=== PATIENT | male | born 1945 | race Caucasian/White ===

== ENCOUNTER → 2020-08-01 01:58 | Outpatient (CLI) | payer MEDICARE, OTHER, SELFPAY ==
[2020-08-02 08:28] LABS: SARS-CoV-2 RNA PCR Negative
== END ==
PROVIDERS: PCP Internal Medicine; Visit Provider Internal Medicine Gastroenterology
DX: Z20.822 Contact with and (suspected) exposure to COVID-19 (principal)
CPT/HCPCS: C9803; U0003; U0005

== ENCOUNTER 2020-08-04 00:57 | Day surgery (SDC) | payer MEDICARE, OTHER, SELFPAY ==
[2020-08-04 08:22] VITALS: BP 135/67; PULSE 73; RESP 16; TEMP 36.5; O2SAT 100; BMI 29.9
[2020-08-04] MEDS: LACTATED RINGERS 1,000 ML 150 ML IV CONT (08:32)
[2020-08-04 08:40] LABS: Glucose Point of Care 95 (65-105)
--- NOTE | 2020-08-04 09:07 | WPDANESEPPF ---
Anes - Initial Pre Proc Eval Procedure: Operation Date: 08/04/20 09:30 Proposed Procedures p Screening Colonoscopy - Velasquez Sumner MD Date/Time: 08/04/20 09:07 Surgeon: Velasquez Sumner MD Pre Op Diagnosis: Hx Colon CA Patient Data Age: 75 Gender: M Height: 5 ft 10 in Weight: 94.5 kg Last Vital Signs Temp 97.7 F 08/04/20 08:22 Pulse 73 08/04/20 08:22 Resp 16 08/04/20 08:22 BP 135/67 08/04/20 08:22 Pulse Ox 100 08/04/20 08:22 Allergies Allergy/AdvReac Type Severity Reaction Status Date / Time No Known Allergies Allergy Verified 08/04/20 08:20 Home Medications Medication Instructions Recorded Confirmed Type melatonin 5 mg capsule 10 mg PO QPM cap 04/18/19 08/04/20 History semaglutide 0.5 mg SUB-Q WEEKLY ml 04/18/19 08/04/20 History fluoxetine 20 mg capsule 20 mg PO DAILY #90 cap 10/30/19 08/04/20 Rx lisinopril 20 mg tablet 20 mg PO DAILY #90 tablet 10/30/19 08/04/20 Rx metformin 500 mg tablet 500 mg PO DAILY #90 tablet 10/30/19 08/04/20 Rx omeprazole 40 mg capsule,delayed 40 mg PO DAILY #90 cap 10/30/19 08/04/20 Rx release rosuvastatin 20 mg tablet 20 mg PO DAILY #90 tablet 10/30/19 08/04/20 Rx tamsulosin 0.4 mg capsule 0.4 mg PO DAILY #90 cap 05/12/20 08/04/20 Rx insulin glargine 100 unit/mL (3 20 unit SUB-Q DAILY #15 ml 05/15/20 08/04/20 Rx mL) subcutaneous pen pen needle, diabetic 31 gauge x #100 ea 05/15/20 08/04/20 Rx 5/16 finasteride 5 mg tablet 5 mg PO DAILY #90 tablet 06/26/20 08/04/20 Rx Laboratory Tests 08/04/20 08:35 POC Capillary Glucose 95 mg/dl mg/dl (65-105) Patient hx anesthesia problems: none Family hx anesthesia problems: none PMFSH Past Medical History Medical History (Updated 03/31/20 @ 12:07 by LUCIA De Leon) CKD (chronic kidney disease) Colon cancer Colorectal cancer Surgery and Radiation 2004 Depression Enlarged prostate GERD (gastroesophageal reflux disease) Heartburn Hyperlipidemia Hypertension Kidney mass Osteoarthritis Osteoporosis Renal carcinoma Renal cyst Tremors of nervous system Type 2 diabetes mellitus with other diabetic kidney complication Surgical History Surgical History (Updated 04/18/19 @ 07:01 by Josephine Shaw [facility]) H/O hernia repair Family History Family History (Updated 12/05/17 @ 08:11 by DOCTOR UNKNOWN) Mother Diabetes mellitus Hypertension Father Family history unknown Other Family history of arthritis Family history of malignant neoplasm Social History Social History (Updated 04/18/19 @ 08:38 by Josephine Shaw [facility]) Smoking status: Former smoker Smoking end date: 05/30/88 Alcohol intake: current Drinks per week: 1 Alcohol use details: OCCATIONALLY Substance use: never Living arrangements: with family Gender identity (if verbalized by the patient): Male Spiritual care concerns: No Anes - Eval Final PreProcedure Day of Procedure 08/04/20 09:07 Patient weight: overweight Heart: regular rate and rhythm Lungs: clear to auscultation Airway: Mallampati scale class III Neurological: alert and oriented Last oral intake: >/= 8 hours ASA classification: III Emergent: no Anesthetic plan: proceed Anesthesia type and monitoring: general GIVS and standard monitoring Informed Consent: The patient's anesthetic plan and its attendant risks and benefits were discussed with the patient/family/POA. Questions were solicited and answers provided to the satisfaction of the patient/family/POA.
[2020-08-04 09:43] VITALS: BP 93/43; PULSE 66; RESP 13; O2SAT 97
[2020-08-04 09:53] VITALS: BP 107/47; PULSE 64; RESP 17; O2SAT 97
[2020-08-04 10:00] LABS: Glucose Point of Care 82 (65-105)
== END 2020-08-04 10:20 | disposition home or self-care (01) ==
PROVIDERS: PCP Internal Medicine; Visit Provider Internal Medicine Gastroenterology
PROC: 0DJD8ZZ Inspection of Lower Intestinal Tract, Via Natural or Artificial Opening Endoscopic (ICD-10-PCS; CPT 45378; principal; 2020-08-04 09:30)
DX: Z12.11 Encounter for screening for malignant neoplasm of colon (principal); Z98.0 Intestinal bypass and anastomosis status; I12.9 Hypertensive chronic kidney disease with stage 1 through stage 4 chronic kidney disease, or unspecified chronic kidney disease; N18.9 Chronic kidney disease, unspecified; F32.9 Major depressive disorder, single episode, unspecified; Z85.038 Personal history of other malignant neoplasm of large intestine; N40.0 Benign prostatic hyperplasia without lower urinary tract symptoms; M81.0 Age-related osteoporosis without current pathological fracture; M19.90 Unspecified osteoarthritis, unspecified site; N28.1 Cyst of kidney, acquired; Z85.528 Personal history of other malignant neoplasm of kidney; R25.1 Tremor, unspecified; E11.22 Type 2 diabetes mellitus with diabetic chronic kidney disease; E78.5 Hyperlipidemia, unspecified; Z79.84 Long term (current) use of oral hypoglycemic drugs; Z79.4 Long term (current) use of insulin; Z90.49 Acquired absence of other specified parts of digestive tract; Z87.891 Personal history of nicotine dependence
CPT/HCPCS: G0105; 82948; J2704; J7120

== ENCOUNTER 2020-10-16 13:32 | Outpatient (CLI) | payer MEDICARE, OTHER, SELFPAY ==
--- NOTE | ~2020-10-16 | MR_ITS ---
EXAMINATION: MR brain/brain stem wo/w con DATE: 10/16/2020 14:35 INDICATION: Tremor, unspecified. TECHNIQUE: Magnetic resonance imaging (MRI) of the brain and brainstem was performed without and with 19 mL MultiHance intravenous contrast. Sequences included sagittal and axial T1-weighted FSE, axial diffusion-weighted FS EPI, axial T2*-weighted GRE, axial T2-weighted FLAIR Propeller, and axial T2-we ighted Propeller. Postcontrast sequences included axial and coronal T1-weighted FSE. Apparent diffusi on coefficient (ADC) maps were created. COMPARISON: None. FINDINGS: There are scattered areas of nonspecific increased T2-weighted signal intensity in the cere bral white matter, which is within normal limits for the patient's age. There is no intracranial hemo rrhage, acute infarction, or abnormal intracranial mass lesion. The ventricles are normal in size. Th e paranasal sinuses are clear. The orbits are normal. The mastoid air cells are normal. IMPRESSION: 1. Normal aging brain. Reviewed, dictated and finalized at location A. IMPRESSION: 1. Normal aging brain.
== END 2020-10-16 13:33 | disposition home or self-care (01) ==
PROVIDERS: PCP Internal Medicine; Visit Provider Clinical Nurse Specialist
DX: R25.1 Tremor, unspecified (principal); R26.81 Unsteadiness on feet
CPT/HCPCS: 70553; A9577

== ENCOUNTER 2021-03-05 12:30 | Outpatient (RCR) | payer MEDICARE, OTHER, SELFPAY ==
--- NOTE | 2021-01-27 14:38 | PTOPEVAL ---
PHYSICAL THERAPY EVALUATION AND PLAN OF CARE Thank you for referring Bertin Jeff to [facility].? The patient is scheduled to be seen for therapy? 1x/week for 5 weeks. Please review, sign, date and return this plan of care JACIEL. I agree with and certify that the following plan of care is medically necessary. Referring Physician Date Attending Provider: Gladis Zheng, SUPERVISOR INCISING-C Evaluation Cardiovascular History Hx Hypercholesterolemia Yes Hx Hypertension Yes Gastrointestinal History Hx Appendectomy Yes Hx Bowel Surgery Yes: 2004 COLECTOMY WITH J POUCH Hx Cholecystectomy Yes Hx Colorectal Cancer Yes: 2004 Hx Gastroesophageal Reflux Disease Yes Hx Hemorrhoids Yes Hx Hernia Yes Hx Polyps Yes Genitourinary History Hx Benign Prostatic Hyperplasia Yes Endocrine History Hx Diabetes Yes: TYPE 2 HEENT History Hx Tonsillectomy Yes Other History Hx Cancer Yes: COLON CA 2004 Hx Implanted Device Yes: ABDOMINAL ILANA Diagnosis Unsteadiness on feet Subjective Information Hiren is here today talking Query Text:As Reported By Patient/ about some difficulty with Family balance. A few years ago he states that he was falling and losing his balance alot but states that this has not happened in several years. He started walking 1.5miles 3-4x/ wk with his week and he feels like this has helped his balance and function. More recently he reports difficulty on stairs, especially not being able to tell where the bottom step is. Pain Score Pain Score 0: Self Report Lower Extremity Muscle Strength Testing Hip Strength Bilateral Hip Flexion Strength 4 Good Hip Extension Strength 3- Fair - Hip Abduction Strength 3+ Fair + Muscle Length Testing Muscle Length Testing Demetrio Test Shortened Muscles Short (R) Iliopsoas,Short (L) Iliopsoas Left Hamstring Length -45 Query Text:(90 - 90 Position) Right Hamstring Length -45 Query Text:(90 - 90 Position) Right Prone Knee Flexor Muscle Length ( 90 degrees) Left Prone Knee Flexor Muscle Length ( 90 degrees) Balance Assessment [place] Balance Assessment Sitting to Standing Independent w/Hands U
--- NOTE | 2021-03-05 12:55 | PTOPEVAL ---
PHYSICAL THERAPY DISCHARGE NOTE Thank you for referring Bertin Jeff to [facility].? Please review, sign, date and return this plan of care JACIEL. I agree with and certify that the following plan of care is medically necessary. Referring Physician Date Attending Provider: Gladis Zheng, BODY AND FRAME MAN-C Discharge Diagnosis Unsteadiness on feet Subjective Information Hiren has participated in 5 Query Text:As Reported By Patient/ weeks of physical therapy. He Family reports that he is feeling stronger and more confindent in every way. He states he has been faithful withi his exercises at home and will continue to do them. Pain Score Pain Score 0: Self Report Lower Extremity Muscle Strength Testing Hip Strength Bilateral Hip Flexion Strength 5 Normal Hip Extension Strength 4- Good - Hip Abduction Strength 5 Normal Knee Strength Bilateral Knee Flexion Strength 5 Normal Knee Extension Strength 5 Normal Muscle Length Testing Muscle Length Testing Demetrio Test Shortened Muscles Short (R) Iliopsoas,Short (L) Iliopsoas Left Hamstring Length -35 Query Text:(90 - 90 Position) Right Hamstring Length -35 Query Text:(90 - 90 Position) Right Prone Knee Flexor Muscle Length ( 95 degrees) Left Prone Knee Flexor Muscle Length ( 95 degrees) Balance Assessment [place] Balance Assessment Sitting to Standing Independent w/out Hands Unsupported Stance Ability Safely- 2 minutes Sitting Unsupported, Feet on Floor Safely- 2 minutes Standing to Sitting Safely, Minimal Hand Use Transfer Ability Safely, Minimal Hand Use Unsupported Stance- Eyes Closed Safely, 10 seconds Unsupported Stance- Feet Together Independent, 1 minute Reaching Forward while Standing Confidently, 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 Floor Independent/Safe Look Behind Shoulder - Standing Shifts Weight Well Turning 360 Degrees Turns Bilateral, < 4 secs Unsupported Stance, Alternating Feet on (I)- 8 Steps in 20 secs Stair Unsupported Tandem Stance Achieves Tandem Unilateral Leg Stance Lifts Leg/Holds 10 secs [place] Balance Evaluation Total Score (/56 56 points) Time Up Go (TUG) Timed Up and Go Test (TUG) (Seconds) 9 Assistive Devices None Comments 1month ago = 9seconds 5 Time Sit to Stand Time in Seconds 12.5 5 Time Sit to Stand Comments 1month ago = 16.5seconds Query Text:Normative Data: If Greater Than 15 Seconds, 74% Increase Risk for Recurrent Falls
== END 2021-03-06 08:45 | disposition home or self-care (01) ==
LOC: ANHPT 12:30
PROVIDERS: PCP Internal Medicine; Visit Provider Clinical Nurse Specialist
DX: R26.81 Unsteadiness on feet (principal)
CPT/HCPCS: 97110; 97162

== ENCOUNTER 2021-03-14 11:31 | Emergency (ER) | payer MEDICARE, OTHER, SELFPAY ==
--- NOTE | ~2021-03-14 | XR_ITS ---
[[id number] ] INDICATION: Left rib pain after recent fall TECHNIQUE: Frontal projection of the upper left ribs, frontal projection of the lower left ribs, obli que projection of all the left ribs, frontal inspiratory chest x-ray for interpretation. FINDINGS: There are no displaced rib fractures identified. There are no soft tissue abnormality see n. The lungs are clear. IMPRESSION: 1:No acute displaced rib fractures. Reviewed, dictated and finalized at location A.
[2021-03-14 11:37] VITALS: BP 167/85; PULSE 70; RESP 18; TEMP 36.6; O2SAT 99
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
== END 2021-03-14 13:40 | disposition home or self-care (01) ==
PROVIDERS: Emergency Provider Emergency Medicine; PCP Internal Medicine
DX: S29.9XXA Unspecified injury of thorax, initial encounter (principal); Z87.891 Personal history of nicotine dependence; E11.22 Type 2 diabetes mellitus with diabetic chronic kidney disease; I12.9 Hypertensive chronic kidney disease with stage 1 through stage 4 chronic kidney disease, or unspecified chronic kidney disease; N18.9 Chronic kidney disease, unspecified; Z85.038 Personal history of other malignant neoplasm of large intestine; N40.0 Benign prostatic hyperplasia without lower urinary tract symptoms; K21.9 Gastro-esophageal reflux disease without esophagitis; E78.5 Hyperlipidemia, unspecified; M19.90 Unspecified osteoarthritis, unspecified site; M81.0 Age-related osteoporosis without current pathological fracture; Z85.528 Personal history of other malignant neoplasm of kidney; Z79.899 Other long term (current) drug therapy; Z79.84 Long term (current) use of oral hypoglycemic drugs; V92.09XA Drowning and submersion due to fall off unspecified watercraft, initial encounter
CPT/HCPCS: 71101; 99283

== ENCOUNTER 2021-06-06 05:02 | Emergency (ER) | payer MEDICARE, OTHER, SELFPAY ==
[2021-06-06 06:31] LABS: SARS-CoV-2 RNA PCR Positive
[2021-06-06 06:35] VITALS: BP 144/70; PULSE 96; RESP 18; TEMP 37.8; O2SAT 97
--- NOTE | 2021-06-06 07:40 | ED.GENADULT ---
HPI - General Adult General Chief complaint: Unspecified Stated complaint: wants covid test Time Seen by Provider: 06/06/21 07:01 Source: patient Mode of arrival: ambulatory Limitations: no limitations History of Present Illness HPI narrative: This is a 76 year old male who presents for evaluation of possible COVID. Patient states he developed symptoms 2 days ago. His symptoms include sinus congestion with drainage, sore throat, chills. He has subjective fever. He reports having intermittent cough but denies worsening shortness of breath. He has chronic breathing issues due to history of smoking. He has been vaccinated. He denies nausea, vomiting, abdominal pain or diarrhea. Related Data Home Medications Medication Instructions Recorded Confirmed melatonin 5 mg capsule 10 mg PO QPM cap 04/18/19 04/15/21 semaglutide 0.5 mg SUB-Q WEEKLY ml 04/18/19 04/15/21 Allergies Allergy/AdvReac Type Severity Reaction Status Date / Time No Known Allergies Allergy Verified 03/14/21 11:41 Review of Systems Review of Systems: All systems reviewed & are unremarkable except as noted in HPI and below PMFSH Past Medical History Medical History CKD (chronic kidney disease) Colon cancer Colorectal cancer Surgery and Radiation 2004 Depression Enlarged prostate GERD (gastroesophageal reflux disease) Heartburn Hyperlipidemia Hypertension Kidney mass Osteoarthritis Osteoporosis Renal carcinoma Renal cyst Tremors of nervous system Type 2 diabetes mellitus with other diabetic kidney complication Surgical History Surgical History H/O hernia repair Family History Family History Mother Diabetes mellitus Hypertension Father Family history unknown Other Family history of arthritis Family history of malignant neoplasm Social History Social History Smoking status: Never smoker Smoking end date: 05/30/88 Alcohol intake: current Drinks per week: 1 Alcohol use details: Occasionally Substance use: never Gender identity (if verbalized by the patient): Male Spiritual care concerns: No Exam Const: General: cooperative, no acute distress, well developed and well groomed Nutritional Appearance: average body habitus Orientation/consciousness: patient oriented x3 Limitations: no limitations HENMT: Head: normocephalic and atraumatic Face and sinus: normal facial exam, sinuses nontender and face symmetric Mouth: Yes Normal oral and palatal mucosa present, Yes lip normal, Yes oropharynx normal and Yes moist mucous membranes Throat: posterior oropharynx normal, tonsils normal and uvula midline Chest: Chest palpation & inspection: normal inspection of the chest Resp: Effort & Inspection: normal respiratory effort and able to speak in complete sentences Auscultation: clear to auscultation bilaterally Cardio: Jugular venous distension: no JVD Rate: regular rate Rhythm: regular rhythm GI: Inspection: normal to inspection GI Palp: Yes Soft to palpation and No Tenderness to palpation present (GI) Auscultation: normal bowel sounds Skin: General skin exam: normal color Course Reevaluation(s) Reevaluation #1: Patient lungs are clear with normal oxygenation. I discussed discharge plan . He would like prescription of Paxlovid. I also discussed isolation requirement. Date: 06/06/21 Time: 07:43 Vital Signs Vital signs: Vital Signs Temperature 100.0 F H 06/06/21 06:35 Pulse Rate 96 06/06/21 06:35 Respiratory Rate 18 06/06/21 06:35 Blood Pressure 144/70 H 06/06/21 06:35 Pulse Oximetry 97 06/06/21 06:35 Temperature 100.0 F H 06/06/21 06:35 Pulse Rate 96 06/06/21 06:35 Respiratory Rate 18 06/06/21 06:35 Blood Pressure 144/70 H 06/06/21 06:35 Puls
== END 2021-06-06 08:03 | disposition home or self-care (01) ==
PROVIDERS: Emergency Medicine; Emergency Provider General Practice; PCP Internal Medicine
DX: U07.1 COVID-19 (principal); E11.22 Type 2 diabetes mellitus with diabetic chronic kidney disease; I12.9 Hypertensive chronic kidney disease with stage 1 through stage 4 chronic kidney disease, or unspecified chronic kidney disease; N18.9 Chronic kidney disease, unspecified; N40.0 Benign prostatic hyperplasia without lower urinary tract symptoms; E78.5 Hyperlipidemia, unspecified; R12 Heartburn; M81.0 Age-related osteoporosis without current pathological fracture; M19.90 Unspecified osteoarthritis, unspecified site; Z85.038 Personal history of other malignant neoplasm of large intestine; Z85.528 Personal history of other malignant neoplasm of kidney; Z87.891 Personal history of nicotine dependence; Z79.84 Long term (current) use of oral hypoglycemic drugs; Z79.899 Other long term (current) drug therapy
CPT/HCPCS: 99283; C9803; U0003; U0005

== ENCOUNTER 2021-06-09 07:52 | Outpatient (RCR) | payer MEDICARE, OTHER, SELFPAY ==
[2021-06-09] MEDS: ACETAMINOPHEN 325 MG TABLET 650 MG PO (08:17)
[2021-06-09 08:18] VITALS: BP 122/56; PULSE 86; RESP 20; TEMP 35.9; O2SAT 100
[2021-06-09] MEDS: FAMOTIDINE 20 MG TABLET PO (08:18)
[2021-06-09] MEDS: diphenhydrAMINE HCl CAP 25 MG CAPSULE PO (08:18)
[2021-06-09 09:40] VITALS: BP 110/63; PULSE 77
== END 2021-06-09 16:08 ==
LOC: AMCINF 07:52
PROVIDERS: PCP Nurse Practitioner; Visit Provider Internal Medicine Hematology & Oncology
DX: U07.1 COVID-19 (principal); I12.9 Hypertensive chronic kidney disease with stage 1 through stage 4 chronic kidney disease, or unspecified chronic kidney disease; E11.9 Type 2 diabetes mellitus without complications; N18.9 Chronic kidney disease, unspecified
CPT/HCPCS: A9270; M0247; Q0247

== ENCOUNTER 2022-04-12 10:44 | Outpatient (CLI) | payer MEDICARE, OTHER, SELFPAY ==
[2022-04-12 19:07] LABS: Hemoglobin A1C 6.6 % (<5.7)
[2022-04-12 19:14] LABS: Creatinine Urine 195.2 mg/dL
[2022-04-12 19:18] LABS: Alanine Aminotransferase 48 U/L (6-50); Albumin Level 4.1 g/dL (3.5-5.1); Alkaline Phosphatase 44 U/L (38-126); Anion Gap 10 mmol/L (8-16); Aspartate Amino Transferase 39 U/L (17-59); Bilirubin,Total 0.6 mg/dL (0.2-1.3); Blood Urea Nitrogen 19 mg/dL (9-20); Carbon Dioxide 25 mmol/L (22-30); Chloride 103 mmol/L (98-107); Cholesterol 104 mg/dL (0-200); Estimated Glomerular Filt Rate 53; Glucose 126 mg/dL (65-110); HDL Direct 33 mg/dL; MALB Creatinine Ratio 5.7 mg/g (0-30); Microalbumin Urine Random 11.2 mg/L (0-16.7); Potassium 4.9 mmol/L (3.4-5.0); Sodium 138 mmol/L (137-145); Triglycerides 130 mg/dL (<150)
[2022-04-12 19:29] LABS: LDL Cholesterol Direct 44 mg/dL
[2022-04-12 20:02] LABS: Basophils Percent Auto 0.8 % (0.2-1.2); Eosinophils Absolute Auto 0.3 K/mm3 (0-0.3); Eosinophils Percent Auto 5.4 % (0-4.4); Hematocrit 38.6 % (42.0-52.0); Hemoglobin 13.2 g/dL (14.0-18.0); Immature Granulocyte Absolute 0.01 K/mm3 (0.00-0.031); Immature Granulocyte Percent A 0.2 % (0-0.5); Lymphocytes Absolute Auto 0.94 K/mm3 (0.9-3.2); Lymphocytes Percent Auto 18.7 % (18.3-44.2); Mean Corpuscular HGB Conc 34.2 g/dl (32-36); Mean Corpuscular Hemoglobin 32.8 pg (26-34); Mean Corpuscular Volume 95.8 fl (80-100); Mean Platelet Volume 11.3 fl (7.4-10.4); Monocytes Absolute Auto 0.3 K/mm3 (0.1-0.6); Monocytes Percent Auto 6.8 % (2.6-8.5); Neutrophils Absolute Auto 3.4 K/mm3 (1.3-6.7); Neutrophils Percent Auto 68.1 % (45.5-73.1); Platelet Count Result 152 k/mm3 (150-375); Red Blood Count 4.03 M/mm3 (4.6-6.20); Red Cell Distribution Width 12.8 % (11.5-14.5)
== END 2022-04-12 10:45 | disposition home or self-care (01) ==
LOC: ANHGOSHLAB 10:48
PROVIDERS: PCP Internal Medicine; Visit Provider Clinical Nurse Specialist
DX: E11.29 Type 2 diabetes mellitus with other diabetic kidney complication (principal)
CPT/HCPCS: 36415; 80053; 80061; 82043; 82607; 83036; 85025

== ENCOUNTER 2022-08-29 18:08 | Observation (INO) | payer MEDICARE, OTHER, SELFPAY ==
[2022-08-29] VITALS (18 sets, daily range): BP systolic 110–165; BP diastolic 47–78; PULSE 65–82; RESP 10–20; TEMP 36.5–36.6; O2SAT 97–100; BMI 29.7; BMI 29.4
--- NOTE | ~2022-08-29 | NM_ITS ---
EXAMINATION: NM chai stress w perfusion DATE: 08/30/2022 13:23 INDICATION: Chest pain TECHNIQUE: Rest images were obtained following intravenous administration of 10.5 mCi Tc99m tetrofosm in (Myoview). The patient was infused intravenously with Lexiscan (Regadenoson). Then, 34.5 mCi Tc99m tetrofosmin (Myoview) was administered intravenously, and stress images were obtained. Data was alannah nstructed into short axis and horizontal and vertical long axis SPECT images. Gated SPECT images were also obtained. COMPARISON: None. FINDINGS: There is no definite reversible or fixed perfusion abnormality to suggest ischemia or infar ction. There is normal left ventricular chamber size, wall motion and ejection fraction. Left ventr icular ejection fraction measures 65%. IMPRESSION: 1. Normal myocardial perfusion at rest and during stress. 2. Left ventricular ejection fraction measuring 65%. Reviewed, dictated and finalized at location A.
--- NOTE | ~2022-08-29 | XR_ITS ---
EXAMINATION: XR chest 2V Exam Date/Time: 08/29/2022 19:03 CDT HISTORY: Generalized chest pain that started this morning. Hx htn Comparison: 09/24/2009. RESULT: Lines, tubes, and devices: None. Lungs and pleura: Senescent change. Persistent left hemidiaphragm elevation. Linear scar/atelectasis in the left lower lung. Cardiomediastinal silhouette: Stable. Other: No acute osseous or upper abdominal finding. IMPRESSION: No acute cardiopulmonary process. Reviewed, dictated and finalized at location K.
--- NOTE | 2022-08-29 18:10 | ECG_ITS ---
Measurements Intervals [place] Rate: 77 P: -3 TN: 169 QRS: 77 QRSD: 157 T: 21 QT: 404 QTc: 458 Interpretive Statements SINUS RHYTHM RIGHT BUNDLE BRANCH BLOCK [120+ ms QRS DURATION, UPRIGHT V1, 40+ ms S IN I/aVL/V4/V5/V6] NO PREVIOUS ECG AVAILABLE FOR COMPARISON Electronically Signed On 08-30-2022 12:17:33 CDT by Chantelle Valdivia M.D.
[2022-08-29 18:40] LABS: Basophils Percent Auto 0.6 % (0.2-1.2); Eosinophils Absolute Auto 0.2 K/mm3 (0-0.3); Eosinophils Percent Auto 2.8 % (0-4.4); Hematocrit 38.4 % (42.0-52.0); Hemoglobin 12.9 g/dL (14.0-18.0); Immature Granulocyte Absolute 0.02 K/mm3 (0.00-0.031); Immature Granulocyte Percent A 0.3 % (0-0.5); Lymphocytes Absolute Auto 0.92 K/mm3 (0.9-3.2); Mean Corpuscular HGB Conc 33.6 g/dl (32-36); Mean Corpuscular Hemoglobin 32.7 pg (26-34); Mean Corpuscular Volume 97.2 fl (80-100); Mean Platelet Volume 10.4 fl (7.4-10.4); Monocytes Absolute Auto 0.3 K/mm3 (0.1-0.6); Monocytes Percent Auto 3.5 % (2.6-8.5); Neutrophils Absolute Auto 5.7 K/mm3 (1.3-6.7); Neutrophils Percent Auto 79.8 % (45.5-73.1); Platelet Count Result 169 k/mm3 (150-375); Red Blood Count 3.95 M/mm3 (4.6-6.20); Red Cell Distribution Width 12.7 % (11.5-14.5); White Blood Count 7.1 K/mm3 (4.5-10.0)
[2022-08-29 18:53] LABS: Alanine Aminotransferase 32 U/L (6-50); Albumin Level 4.5 g/dL (3.5-5.1); Alkaline Phosphatase 49 U/L (38-126); Anion Gap 7 mmol/L (8-16); Aspartate Amino Transferase 28 U/L (17-59); Bilirubin,Total 0.6 mg/dL (0.2-1.3); Blood Urea Nitrogen 19 mg/dL (9-20); Calcium 9.1 mg/dL (8.4-10.2); Carbon Dioxide 26 mmol/L (22-30); Chloride 104 mmol/L (98-107); Estimated CRCL calculation 43 ml/min; Estimated Glomerular Filt Rate 53; Glucose 197 mg/dL (65-110); INR 1.1; Lipase 242 U/L (23-300); Potassium 4.4 mmol/L (3.4-5.0); Prothrombin Time 13.3 Seconds (11.1-14.7); Sodium 137 mmol/L (137-145)
[2022-08-29 18:54] LABS: Partial Thromboplastin Time 26.6 SECONDS (22.3-36.8)
[2022-08-29 19:04] LABS: Troponin I < 0.012 ng/mL (0.000-0.034)
--- NOTE | 2022-08-29 20:36 | ED.CHESTPAIN ---
HPI - Chest Pain General Chief Complaint: Chest Pain Stated Complaint: episodes of CP Time Seen by Provider: 08/29/22 20:33 History of Present Illness HPI narrative: Patient is a 77-year-old male with a history of hyperlipidemia, diabetes, hypertension here for evaluation of chest pain today. Patient states that the first episode developed while he was at [employer] this morning. He described it as a tightness in the center of his chest associated with some nausea but no vomiting. The sensation resolved without intervention, but he had several more episodes throughout the day that were similar. Several of these were associated with exertion. The pain was 3 out of 10 at its max, not present currently. He also describes a warm sensation in his legs and both arms. He denies any history of previous similar sensation. He has never had cardiac catheterization, he had a stress test over 10 years ago that was reportedly normal. No shortness of breath, leg swelling, fevers or chills, cough or congestion. Related Data Home Medications Medication Instructions Recorded Confirmed melatonin 5 mg capsule 10 mg PO QPM 04/18/19 08/29/22 insulin glargine 100 unit/mL (3 14 unit subcut QPM 07/12/22 08/29/22 mL) subcutaneous pen (Lantus Solostar U-100 Insulin) semaglutide 0.25 mg or 0.5 mg (2 0.25 mg subcut WEEKLY 07/12/22 08/29/22 mg/1.5 mL) subcutaneous pen injector (Ozempic) Allergies Allergy/AdvReac Type Severity Reaction Status Date / Time No Known Allergies Allergy Verified 07/12/22 08:55 Review of Systems Review of Systems: Gen: Denies fevers or chills Eyes: Denies eye pain or visual change ENT: Denies congestion Respiratory: Denies shortness of breath or cough CV: reports chest pain GI: Denies abdominal pain nausea, emesis or diarrhea : denies burning, urgency, frequency or hematuria Musculoskeletal: Denies back pain or muscle pain Neuro: Denies numbness, tingling, weakness or focal weakness Skin: Denies rash Except as documented, all other systems reviewed and negative [facility] Past Medical History Medical History (Updated 08/29/22 @ 23:58 by Sulma Coronado PA-C) AK (actinic keratosis) BPH (benign prostatic hyperplasia) Cataracts, bilateral Maturing Chronic kidney disease, stage 3b Dr. Mcnamara Colorectal cancer Surgery and Radiation 2004 COVID-19 (~07/2021) Depression Essential hypertension GERD (gastroesophageal reflux disease) Hyperlipidemia Insomnia Kidney stones Osteoarthritis Osteoporosis Renal carcinoma Tremors of nervous system Type 2 diabetes mellitus with other diabetic kidney complication Hemoglobin A1c 6 28 July 2022 Surgical History Surgical History (Updated 08/29/22 @ 21:43 by Katia Dooley DO) H/O hernia repair History of appendectomy History of resection of rectum (2004) History of tonsillectomy Hx of cholecystectomy Normal colonoscopy (07/2020) Family History Family History Mother Diabetes mellitus Hypertension Father Family history unknown Other Family history of arthritis Family history of malignant neoplasm Social History Social History Smoking packs per day: 1 Smoking cigarettes per day: 20.0 Years smoked: 33 Smoking pack-years: 33.00 Smoking status: Former smoker Tobacco type: cigarettes Smoking end date: 05/30/88 Alcohol intake: current Drinks per week: 1 Alcohol use details: Occasionally Substance use: never Lack of Transportation: No Lack of Food: Never True Current Housing: I Have Housing Concerned About Future Housing: No Difficulty Paying Gas/Electric Bills: No Difficulty Paying for Meds: YES Currently Unemployed: No Education: High School Diploma/GED Difficulty w/ Childcare or Family Care: No Living arrangements: with family Gender identity (if verbalized by the patient): Male Spir
[2022-08-29 21:22] LABS: Troponin I < 0.012 ng/mL (0.000-0.034)
--- NOTE | 2022-08-29 21:34 | PM.IMHP ---
H&P: HPI History of Present Illness Date/Time: 08/29/22 21:34 Chief Complaint: Chest Pain Narrative: 68-year-old with a past medical history of type 2 diabetes, hypertension, hyperlipidemia, chronic kidney stage 3, GERD and several other comorbid conditions who presented to the ER with chest pain. The patient reports that he was getting ready for jainism when he developed a sensation of warmth in his chest that radiated all over his body. The hip pain is pressure-like in nature. He denied any nausea vomiting, lightheadedness, palpitations limb heaviness or weakness. This sensation lasted for about 30 seconds in the resolved. 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 When he changes clothes he had a similar episode. Then it also happened again after he came in from working outside around 17:00. After he had the 3rd episode his insisted that he come into the ER for evaluation. He had never had any symptoms like this previously. He does report that he occasionally feels off balance and will stumble. But he does have history of peripheral neuropathy. He has not had any falls. He does have chronic kidney disease and BPH. He reports that he has had progressively weaker stream. He still feels as if he empties his bladder completely. He does not follow with urology. He denies any hematuria or dysuria. He denies any history of stroke or difficulties with his hormones. He has not noticed any localized weakness. Both he and his report occasional difficulty swallowing foods. He states he sometimes feels as if they have not chewed the food enough and he feels as if the food will get stuck. He does follow with Dr. Aragon for history of prior rectal cancer in 2004 and he had his last colonoscopy in July of 2020. He reports that no one instructed him to follow-up for another colonoscopy in his last colonoscopy was actually performed by Dr. Walker since Dr. Aragon was out of the office. He does report difficulty with stool incontinence at times since his resection. He denies any changes in his stool from baseline, hematochezia or melena. His weight has been stable. He denies any near-syncope symptoms. He reports that he used to be quite active physically but has been having some difficulty with sciatica and his lower back radiating down his right side. Subsequently his activity the level has declined over the last 6-8 months. He reports that his last stress test was over 10 years ago and was normal. His has told him that he snores if he lays on his back. He denies daytime sleepiness or fatigue. He has never been tested for sleep apnea. Review of Systems Review of Systems: 12 systems were reviewed with pertinent positives and negatives per HPI. Except as documented in the HPI, all other systems were reviewed and are negative. [facility] Past Medical History Medical History (Updated 08/30/22 @ 03:04 by Katia Dooley DO) AK (actinic keratosis) BPH (benign prostatic hyperplasia) Cataracts, bilateral Maturing Chronic kidney disease, stage 3b Dr. Mcnamara Colorectal cancer Surgery and Radiation 2004 COVID-19 (~07/2021) Depression Diabetic peripheral neuropathy Essential hypertension GERD (gastroesophageal reflux disease) Hyperlipidemia Insomnia Kidney stones Osteoarthritis Osteoporosis Renal carcinoma Tremors of nervous system Type 2 diabetes mellitus with other diabetic kidney complication Hemoglobin A1c 6 28 July 2022 Surgical History Surgical History (Updated 08/29/22 @ 21:43 by Katia Dooley DO) H/O hernia repair History of appendectomy History of resection of rectum (2004) History of tonsillectomy Hx of cholecystectomy Normal colonoscopy (07/2020) Family History Family History Mother Diabetes mellitus Hypertension Father Family history unknown Other Family
--- NOTE | 2022-08-29 22:31 | ADMGEN ---
This patient, Bertin Jeff, was admitted to IMU Room 210-01. Patient/family oriented to hospital policies and general routines including ID bracelet, bed and alarms, visiting hours, pain management, procedures, bathroom and other care routines, personal items, smoking policy, room service/diet, and visiting hours. Information on how to activate the Rapid Response Team has been discussed. Patient/Family are encouraged to report perceived risks to care and to ask questions if they do not understand what they are told or what they should do.
[2022-08-29 23:30] LABS: Glucose Point of Care 155 mg/dl (65-105)
[2022-08-30] VITALS (16 sets, daily range): BP systolic 102–168; BP diastolic 50–73; PULSE 58–83; RESP 16–20; TEMP 36.1–36.6; O2SAT 95–100
[2022-08-30 01:28] LABS: Troponin I < 0.012 ng/mL (0.000-0.034)
[2022-08-30 06:09] LABS: Glucose Point of Care 131 mg/dl (65-105)
[2022-08-30] MEDS: ENOXAPARIN 40 MG/0.4 ML SYRINGE SUB-Q (08:58)
[2022-08-30] MEDS: FLUoxetine HCL 20 MG CAPSULE PO (08:59)
[2022-08-30] MEDS: FINASTERIDE 5 MG TABLET PO (08:59)
--- NOTE | 2022-08-30 15:04 | PM.IMPN ---
Progress Note: A&P Assessment and Plan (1) Sensation of feeling hot: Code(s): R68.89 - Other general symptoms and signs Status: Acute Assessment and Plan: I am thinking the warm sensations are secondary to DM neuropathy BUt i want to watch pt on telemetry over night for any arrhythmias Dami order TSH CBC in AM so far cbc/ bmp are nl Will order orthostatics Amitriptyline ordered for possible DM neuropathy (2) Chest pain: Qualifiers: Chest pain type: unspecified Qualified Code(s): R07.9 - Chest pain, unspecified Code(s): R07.9 - Chest pain, unspecified Status: Acute Assessment and Plan: Lexiscan is normal. CXR is good. (3) Type 2 diabetes mellitus with other diabetic kidney complication: Code(s): E11.29 - Type 2 diabetes mellitus with other diabetic kidney complication Status: Acute Assessment and Plan: Continue to watch ACCUCHecks in the hospital. hbaic is 6 (4) BPH (benign prostatic hyperplasia): Qualifiers: Lower urinary tract symptom presence: symptoms present Lower urinary tract symptom detail: weak urinary stream Qualified Code(s): N40.1 - Benign prostatic hyperplasia with lower urinary tract symptoms; R39.12 - Poor urinary stream Code(s): N40.0 - Benign prostatic hyperplasia without lower urinary tract symptoms Status: Acute Assessment and Plan: Will continue patient's home Proscar and Flomax. (5) Essential hypertension: Code(s): I10 - Essential (primary) hypertension Status: Acute Assessment and Plan: Blood pressures have been stable well controlled. Will continue home antihypertensives. (6) Dysphagia: Qualifiers: Dysphagia type: pharyngeal phase Qualified Code(s): R13.13 - Dysphagia, pharyngeal phase Code(s): R13.10 - Dysphagia, unspecified Status: Acute Assessment and Plan: The patient is reporting subjective sensation of dysphagia or globus as if food is getting stuck that is intermittent in nature. No need for inpatient evaluation Plan . Subjective Date/time seen: 08/30/22 15:04 68-year-old with a past medical history of type 2 diabetes, hypertension, hyperlipidemia, chronic kidney stage 3, GERD and several other comorbid conditions who presented to the ER with chest pain.? The patient reports that he was getting ready for quaker when he developed a sensation of warmth in his chest that radiated all over his body.? Pt states this warm sensation in his body was going on all day, before going to quaker after he came back. And again later in the day. was worried and brought him in to ED. So far cbc/ bmp are good Lexiscan is normal. CXR is good. Pt is still very concerned about this warm sensations all through his body. Continue to watch pt in the hospital on telemetry watch for any arrhythmias. order orthostatics and watch vitals overnight. Review of Systems Review of Systems: Warm sensations all over the body Exam Narrative: Weight 93 kg BMI 29.4 Const: Other: Overweight, no acute distress Eyes: Other: Pupils are equal and reactive, no scleral icterus, no conjunctival pallor, bilateral cataracts noted Resp: Other: Clear to auscultation bilaterally, no increased work of breathing Cardio: Other: Regular rate, regular rhythm, 2+ bilateral radial pedal pulses GI: Other: Distended, soft, nontender, positive bowel sounds Skin: Other: No pallor, non jaundice Neuro: Other: Alert oriented, speech is clear, no facial asymmetry, no localizing neurologic deficits noted during the course of casual conversation Extrem: Other: No clubbing, cyanosis or edema, no foot wounds Psych: Other: Appropriate mood and affect, pleasant and cooperative, judgment and insight intact Objective Data Vital Signs Vital Signs: Vital Signs - 24 hr 08/29/22 18:29 08/29/22 20:43 08/29/22 20:42 Temperature 36.
[2022-08-30] MEDS: INSULIN GLARGINE (*BKC) 100 UNITS/ML 14 UNITS SUB-Q (18:09)
[2022-08-30] MEDS: INSULIN ASPART (*BKC) 100 UNITS/ML SUB-Q (18:09)
[2022-08-30 20:12] LABS: Glucose Point of Care 118 mg/dl (65-105)
[2022-08-30] MEDS: AMITRIPTYLINE HCL 10 MG TABLET PO (20:43)
[2022-08-30] MEDS: MELATONIN 5 MG TABLET 10 MG PO (20:43)
--- NOTE | 2022-08-30 23:55 | EST_ITS ---
Patient Info Name: Bertin Jeff Age: 77 years : 1945 Gender: Male Ht: 70 in Wt: 205 lbs BSA: 2.17 m2 HR: 64 bpm BP: 101 / 52 mmHg Heart Rhythm: Sinus Rhythm Exam Date: 08/30/2022 11:34 AM Exam Location: [facility] Patient Status: Outpatient Admit Date: 08/29/2022 Staff Ordering Physician: Katia Dooley DO Attending Provider: Katia Dooley DO Nurse: PAZ POSADA Exam Type: CA stress chai w NM Study Info Indications R07.9 - Chest pain, unspecified A regadenoson stress test was performed. Summary 1. No abnormal ST/T wave changes diagnostic of ischemia with Lexiscan. 2. Please correlate with nuclear medicine images, reported separately. Protocol: Lexiscan Stress ECG Details Stage: REST Duration (min): 2 min : 34 sec HR (bpm): 65 SBP (mmHg): 101 DBP (mmHg): 52 Stage: REST Duration (min): 9 min : 7 sec HR (bpm): 68 SBP (mmHg): 101 DBP (mmHg): 52 Stage: STAGE 1 Duration (min): 0 min : 59 sec HR (bpm): 79 SBP (mmHg): 101 DBP (mmHg): 56 Stage: RECOVERY Duration (min): 1 min : 0 sec HR (bpm): 93 SBP (mmHg): 101 DBP (mmHg): 56 Stage: RECOVERY Duration (min): 2 min : 0 sec HR (bpm): 91 SBP (mmHg): 101 DBP (mmHg): 56 Stage: RECOVERY Duration (min): 3 min : 0 sec HR (bpm): 87 SBP (mmHg): 108 DBP (mmHg): 52 Stage: RECOVERY Duration (min): 3 min : 23 sec HR (bpm): 86 SBP (mmHg): 108 DBP (mmHg): 52 Rest HR: 68 bpm Peak HR: 94 bpm Rest Sys BP: 101 mmHg Peak Sys BP: 108 mmHg Max Pred HR: 141 bpm % Max Pred HR: 67 % Target HR: 120 bpm Max RPP: 10,152 bpm*mmHg Total Time: 1 min : 0 sec Rest Jerez BP: 52 mmHg Peak Jerez BP: 52 mmHg Total Dose: 0.4 mg Resting ECG Sinus rhythm. Right bundle branch block. Stress ECG Sinus rhythm. Right bundle branch block. No abnormal ST/T wave changes diagnostic of ischemia with Lexiscan. Arrhythmias None. Report Signatures
[2022-08-31] VITALS (7 sets, daily range): BP systolic 118–123; BP diastolic 63; PULSE 55–68; RESP 14–18; TEMP 36.4–36.6; O2SAT 96–99
[2022-08-31 06:14] LABS: Glucose Point of Care 174 mg/dl (65-105)
[2022-08-31 06:14] LABS: Glucose Point of Care 238 mg/dl (65-105)
[2022-08-31 08:04] LABS: Hematocrit 35.2 % (42.0-52.0); Hemoglobin 12.1 g/dL (14.0-18.0); Immature Platelet Fraction Pct 3.8 % (0.9-11.2); Mean Corpuscular HGB Conc 34.4 g/dl (32-36); Mean Corpuscular Hemoglobin 32.3 pg (26-34); Mean Corpuscular Volume 93.9 fl (80-100); Mean Platelet Volume 10.5 fl (7.4-10.4); Platelet Count Result 137 k/mm3 (150-375); Red Blood Count 3.75 M/mm3 (4.6-6.20); Red Cell Distribution Width 12.6 % (11.5-14.5); White Blood Count 5.1 K/mm3 (4.5-10.0)
[2022-08-31 08:18] LABS: Magnesium 1.8 mg/dL (1.6-2.3)
[2022-08-31 08:23] LABS: Glucose Point of Care 102 mg/dl (65-105)
[2022-08-31] MEDS: FINASTERIDE 5 MG TABLET PO (08:56)
[2022-08-31] MEDS: FLUoxetine HCL 20 MG CAPSULE PO (08:56)
[2022-08-31] MEDS: ENOXAPARIN 40 MG/0.4 ML SYRINGE SUB-Q (08:57)
--- NOTE | 2022-08-31 11:30 | PM.DS ---
DS: Admitting Diagnosis Discharge Date 08/31/22 Admitting Diagnosis Chest Pain Diabetes Mellitus Diabetic Neuropathy DS: Discharge Diagnosis Discharge Diagnosis (1) Dysphagia: Qualifiers: Dysphagia type: pharyngeal phase Qualified Code(s): R13.13 - Dysphagia, pharyngeal phase Code(s): R13.10 - Dysphagia, unspecified Status: Acute (2) Chest pain: Code(s): R07.9 - Chest pain, unspecified Status: Acute (3) Chest pain: Qualifiers: Chest pain type: unspecified Qualified Code(s): R07.9 - Chest pain, unspecified Code(s): R07.9 - Chest pain, unspecified Status: Acute DS: Summary Hospital Course Reason for hospitalization: Chest Pain Hospital Course: 68-year-old with a past medical history of type 2 diabetes, hypertension, hyperlipidemia, chronic kidney stage 3, GERD and several other comorbid conditions who presented to the ER with chest pain. Under went nuclear stress test which was unremarkable. Was started on Amitriptyline for Diabetic Neuropathy. Discharged home n stable condition. Status at Discharge Functional status at discharge: independent ambulation Overall status at discharge: patient is back to baseline Time Spent with Patient Time attestation: Total time spent providing and/or coordinating discharge services: Time spent: Greater than 30 minutes Exam Narrative: Const: Other: Overweight, no acute distress Eyes: Other: Pupils are equal and reactive, no scleral icterus, no conjunctival pallor, bilateral cataracts noted Resp: Other: Clear to auscultation bilaterally, no increased work of breathing Cardio: Other: Regular rate, regular rhythm, 2+ bilateral radial pedal pulses GI: Other: Distended, soft, nontender, positive bowel sounds Skin: Other: No pallor, non jaundice Neuro: Other: Alert oriented, speech is clear, no facial asymmetry, no localizing neurologic deficits noted during the course of casual conversation Extrem: Other: No clubbing, cyanosis or edema, no foot wounds Psych: Other: Appropriate mood and affect, pleasant and cooperative, judgment and insight intact DS: Data Data Completed and Pending Labs on day of discharge: Labs from last 24 hours 08/31/22 08/31/22 08/31/22 07:55 07:41 07:41 WBC RBC Hgb Hct MCV MCH MCHC RDW Plt Count MPV % Immature Plt Fraction POC Capillary Glucose 102 Magnesium 1.8 Vitamin B12 630.0 RBC Folate Pending Hematocrit Pending TSH 1.750 08/31/22 08/30/22 08/30/22 07:41 19:57 16:11 WBC 5.1 RBC 3.75 L Hgb 12.1 L Hct 35.2 L MCV 93.9 MCH 32.3 MCHC 34.4 RDW 12.6 Plt Count 137 L MPV 10.5 H % Immature Plt Fraction 3.8 POC Capillary Glucose 118 H 238 H Magnesium Vitamin B12 RBC Folate Hematocrit TSH 08/30/22 13:40 WBC RBC Hgb Hct MCV MCH MCHC RDW Plt Count MPV % Immature Plt Fraction POC Capillary Glucose 174 H Magnesium Vitamin B12 RBC Folate Hematocrit TSH Discharge Plan Discharge Attending physician on discharge: Tara Leblanc Consulting providers: Sulma Coronado Discharging Clinician: Tara Leblanc Anticipated Discharge Date/Time: 08/31/22 11:13 Patient Disposition: Home, Self-Care Activity: as tolerated Diet: heart healthy and diabetic Patient Instructions: Antibiotic Form Stand Alone Forms: General Discharge Information Follow-up/Referrals: Sebastian Young DO [Primary Care Provider] - 2 Weeks Discharge Medications: New amitriptyline 10 mg Tablet 10 mg PO HS Qty: 30 0RF Continued melatonin 5 mg capsule 10 mg PO QPM Ozempic 0.25 mg or 0.5 mg(2 mg/1.5 mL) pen injector 0.25 mg SUB-Q WEEKLY Rx Instructions: Inject 0.25mg subcutaneously once weekly using rotating injection sites, Tuesday A.M. insulin glargine [Lantus Solostar U-100 Insulin] 1
[2022-09-05 04:09] LABS: Red Blood Cell Folate 598 ng/mL RBC (>280)
== END 2022-08-31 12:28 | disposition home or self-care (01) ==
LOC: ANHED 20:33 → ANHIMU 08-30 11:14
PROVIDERS: Family Medicine; Admitting Provider Internal Medicine; Emergency Provider Physician Assistant; PCP Internal Medicine; Visit Provider Internal Medicine
DX: R13.10 Dysphagia, unspecified (principal); R07.9 Chest pain, unspecified; R11.0 Nausea; R68.89 Other general symptoms and signs; N40.1 Benign prostatic hyperplasia with lower urinary tract symptoms; R13.13 Dysphagia, pharyngeal phase; F32.A Depression, unspecified; K21.9 Gastro-esophageal reflux disease without esophagitis; E78.5 Hyperlipidemia, unspecified; G47.00 Insomnia, unspecified; M19.90 Unspecified osteoarthritis, unspecified site; I45.10 Unspecified right bundle-branch block; I12.9 Hypertensive chronic kidney disease with stage 1 through stage 4 chronic kidney disease, or unspecified chronic kidney disease; E11.22 Type 2 diabetes mellitus with diabetic chronic kidney disease; N18.32 Chronic kidney disease, stage 3b; F10.90 Alcohol use, unspecified, uncomplicated; Z86.16 Personal history of COVID-19; Z87.891 Personal history of nicotine dependence; Z85.528 Personal history of other malignant neoplasm of kidney; Z79.4 Long term (current) use of insulin; Z79.85 Long-term (current) use of injectable non-insulin antidiabetic drugs; Z79.899 Other long term (current) drug therapy
CPT/HCPCS: 36415; 71046; 78452; 80053; 82607; 82747; 82948; 83690; 83735; 84443; 84484; 85025; 85027; 85055; 85610; 85730; 93005; 93017; 96372; 99285; A9270; A9502; G0378; J1650; J1815; J2785

== ENCOUNTER 2023-03-14 09:35 | Outpatient (CLI) | payer MEDICARE, OTHER, SELFPAY ==
[2023-03-14 18:53] LABS: Hematocrit 38.3 % (42.0-52.0); Hemoglobin 12.7 g/dL (14.0-18.0); Mean Corpuscular HGB Conc 33.2 g/dl (32-36); Mean Corpuscular Hemoglobin 31.8 pg (26-34); Mean Platelet Volume 11.2 fl (7.4-10.4); Platelet Count Result 166 k/mm3 (150-375); Red Blood Count 3.99 M/mm3 (4.6-6.20); Red Cell Distribution Width 12.2 % (11.5-14.5); White Blood Count 5.6 K/mm3 (4.5-10.0)
[2023-03-14 20:17] LABS: Anion Gap 8 mmol/L (8-16); Blood Urea Nitrogen 16 mg/dL (9-20); Calcium 8.8 mg/dL (8.4-10.2); Carbon Dioxide 28 mmol/L (22-30); Chloride 100 mmol/L (98-107); Estimated Glomerular Filt Rate 58; Glucose 159 mg/dL (65-110); Potassium 4.8 mmol/L (3.4-5.0); Sodium 136 mmol/L (137-145)
[2023-03-15 07:22] LABS: Hemoglobin A1C 7.1 % (<5.7)
== END 2023-03-14 09:36 | disposition home or self-care (01) ==
LOC: ANHGOSHLAB 09:38
PROVIDERS: PCP Internal Medicine; Visit Provider Clinical Nurse Specialist
DX: E11.42 Type 2 diabetes mellitus with diabetic polyneuropathy (principal); I10 Essential (primary) hypertension
CPT/HCPCS: 36415; 80048; 83036; 85027

== ENCOUNTER 2023-09-14 15:05 | Outpatient (CLI) | payer MEDICARE, OTHER, SELFPAY ==
--- NOTE | ~2023-09-14 | XR_ITS ---
EXAMINATION: XR lumbar spine 2-3V DATE: 09/14/2023 15:22 INDICATION: Radiculopathy, lumbar region. TECHNIQUE: 3 views of lumbar spine were obtained. COMPARISON: None. FINDINGS: There is 15 degrees levoscoliosis of lumbar spine. There is mild chronic anterior wedging o f T12 vertebral body. There are endplate osteophytes at all levels. There is moderately decreased dis c height at L2-L3 and L3-L4 and severely decreased disc height at L5-S1. There is multilevel severe f acet joint osteoarthritis. Surgical clips overlie right pelvis. IMPRESSION: 1. Severe lumbar spondylosis. 2. Lumbar levoscoliosis. Reviewed, dictated and finalized at location E.
== END 2023-09-14 15:06 ==
PROVIDERS: PCP Clinical Nurse Specialist; Visit Provider Clinical Nurse Specialist
DX: M43.06 Spondylolysis, lumbar region (principal); M41.86 Other forms of scoliosis, lumbar region
CPT/HCPCS: 72100

== ENCOUNTER 2023-12-15 09:59 | Outpatient (CLI) | payer MEDICARE, OTHER, SELFPAY ==
--- NOTE | ~2023-12-15 | XR_ITS ---
Clinical Indication: Weight loss PA and lateral views of the chest: Comparison: 08/29/2022 Findings: The lungs are clear, without evidence of focal consolidation or pleural effusion. Cardiome diastinal silhouette is within normal limits. Bones and soft tissues are unremarkable. Impression: Normal chest. Reviewed, dictated and finalized at location . Impression: Normal chest.
== END 2023-12-15 10:00 ==
PROVIDERS: PCP Clinical Nurse Specialist; Visit Provider Clinical Nurse Specialist
DX: R63.4 Abnormal weight loss (principal)
CPT/HCPCS: 71046

== ENCOUNTER 2023-12-26 13:24 | Outpatient (CLI) | payer MEDICARE, OTHER, SELFPAY ==
--- NOTE | ~2023-12-26 | MR_ITS ---
EXAMINATION: MR lumbar spine wo con DATE: 12/26/2023 14:29 INDICATION: Radiculopathy, lumbar region. TECHNIQUE: Magnetic resonance imaging (MRI) of the lumbar spine was performed without intravenous con trast. Sequences included sagittal T2-weighted FSE, sagittal T2-weighted FS FSE, sagittal T1-weighted FSE, and axial T2-weighted FSE. COMPARISON: Lumbar spine radiographs 09/14/2023 FINDINGS: There is 12 degrees levoscoliosis of lumbar spine. Vertebral body heights are normal. There is a hemangioma in L1 vertebral body. There is mildly decreased disc height at L1-L2 and moderately decreased disc height at L2-L3 and L3-L4. There is severely decreased disc height at L5-S1 with inter body fusion. The distal spinal cord signal intensity is normal. The conus medullaris is at L1. The fo llowing disc levels are specifically discussed: L1-L2: The disc is bulging and has an annular fissure. There is mild bilateral facet joint osteoarthr itis. There is mild bilateral neural foraminal stenosis. There is mild central canal stenosis. L2-L3: The disc is bulging and has an annular fissure. There is mild bilateral facet joint osteoarthr itis. There is moderate right and mild left neural foraminal stenosis. There is mild central canal st enosis. L3-L4: The disc is bulging and has an annular fissure. There is severe bilateral facet joint osteoart hritis. There is moderate bilateral neural foraminal stenosis. There is mild central canal stenosis. L4-L5: The disc is bulging and has an annular fissure. There is severe bilateral facet joint osteoart hritis. There is moderate bilateral neural foraminal stenosis. There is mild central canal stenosis. There is moderate stenosis of left lateral recess. L5-S1: The disc is bulging. There is mild bilateral facet joint osteoarthritis. There is mild right a nd moderate left neural foraminal stenosis. There is mild central canal stenosis. IMPRESSION: 1. Moderate lumbar spondylosis. 2. Lumbar levoscoliosis. Reviewed, dictated and finalized at location A.
--- NOTE | ~2023-12-26 | MR_ITS ---
EXAMINATION: MR brain/brain stem wo/w con DATE: 12/26/2023 14:29 INDICATION: Loss of balance. Tremors. TECHNIQUE: Magnetic resonance imaging (MRI) of the brain and brainstem was performed without and with 18 mL MultiHance intravenous contrast. COMPARISON: Brain MRI 10/16/2020 FINDINGS: There are scattered areas of nonspecific increased T2-weighted signal intensity in the cere bral white matter and juancho, which is within normal limits for the patient's age. There is no intracra nial hemorrhage, acute infarction, or abnormal intracranial mass lesion. The ventricles are normal in size. The orbits are normal. The paranasal sinuses are clear. The mastoid air cells are normal. IMPRESSION: 1. Normal aging brain. Reviewed, dictated and finalized at location A. IMPRESSION: 1. Normal aging brain.
== END 2023-12-26 13:25 | disposition home or self-care (01) ==
LOC: ANHIMG 13:24
PROVIDERS: PCP Clinical Nurse Specialist; Visit Provider Clinical Nurse Specialist
DX: M54.16 Radiculopathy, lumbar region (principal); R25.1 Tremor, unspecified; R26.81 Unsteadiness on feet; M43.06 Spondylolysis, lumbar region; M41.86 Other forms of scoliosis, lumbar region
CPT/HCPCS: 70553; 72148; A9577

== ENCOUNTER 2024-11-18 20:39 | Inpatient (IN) | payer MEDICARE, OTHER, SELFPAY ==
--- NOTE | ~2024-11-18 | XR_ITS ---
XR chest 2V Ordering provider: Demetrio Alva APRN History: 79 years Male with . weakness, fever . Comparison: December 15, 2023 FINDINGS: MEDIASTINUM: The cardiac silhouette is slightly enlarged. LUNGS: No infiltrates, effusions or pneumothorax. OTHER: No free air under the diaphragm. Degenerative spine. IMPRESSION: No acute cardiopulmonary pathology. Cardiomegaly. Reviewed, dictated and finalized at location A.
--- NOTE | ~2024-11-18 | CT_ITS ---
CT of the Abdomen and Pelvis: Indication: Flank pain Technique: 2.5 mm axial scans were obtained through the abdomen and pelvis following intravenous adm inistration of 100 cc of Omnipaque 350. Dose reduction technique was used on this scan by utilizing a utomated exposure control and iterative reconstruction technique. The dose-length product (DLP) was 8 64.38 mGy-cm. Findings: Scans through the lung bases demonstrate 2 cm irregular semisolid nodule/consolidation in the right lower lobe (axial image 11. There is an additional 4 mm circumscribed nodule at the extreme right lung base (axial image 30). There is probable left basilar atelectasis.. The liver, spleen, pancreas, adrenals and right kidney are within normal limits. Gallbladder absent. Large left lower pole renal cyst present. No evidence of aortic aneurysm. No lymphadenopathy. No bowel obstruction or bowel wall thickening. Probable distal rectal anastomosis noted. There is add itional postoperative change at the right colon. Images through the pelvis were performed. Probable mild wall thickening on the left side of the urina ry bladder. Tiny bubble of air present in the urinary bladder. No pelvic mass seen. No ascites. Impression: 2 cm irregular semisolid nodule or consolidation the right lower lobe. This is suspicious for focal p neumonitis. Follow-up exam in 1-3 months recommended to reassess. Probable mild wall thickening along the left side of the urinary bladder. This could reflect cystitis . Neoplasm felt to be less likely, though difficult to completely exclude. Correlate clinically. Cons ider cystoscopy as indicated. Reviewed, dictated and finalized at location . Impression: 2 cm irregular semisolid nodule or consolidation the right lower lobe. This is suspicious for focal pneumonitis. Follow-up exam in 1-3 months recommended to r silvestre. Probable mild wall thickening along the left side of the urinary bladder. This could reflect cystitis. Neoplasm felt to be less likely, though difficult to co mpletely exclude. Correlate clinically. Consider cystoscopy as indicated.
[2024-11-18 20:42] VITALS: BP 123/63; PULSE 79; RESP 19; TEMP 37.9; O2SAT 97
[2024-11-18 20:48] LABS: Glucose Point of Care 239 mg/dl (65-105)
[2024-11-18 20:53] VITALS: PULSE 85
--- NOTE | 2024-11-18 20:55 | ECG_ITS ---
Test Date: 2024-11-18 21:24:55 Measurements Intervals [place] Rate: 74 P: -16 MS: 178 QRS: 82 QRSD: 156 T: 29 QT: 395 QTc: 439 Interpretive Statements SINUS RHYTHM RIGHT BUNDLE BRANCH BLOCK BASELINE ARTIFACT- I, II, III, AVR, AVL, V3 ABNORMAL ECG No previous ECG available for comparison Electronically Signed On 11-19-2024 07:15:38 CDT by Bryan Vazquez D.O.
--- NOTE | 2024-11-18 20:55 | ED.WEAKNESS ---
HPI - Weakness General Chief complaint: Weakness <Demetrio Alva APRN - Last Filed: 11/18/24 22:07> Stated complaint: WEAKNESS, TREMMORS, FALLS <Demetrio Alva APRN - Last Filed: 11/18/24 22:07> Time Seen by Provider: 11/18/24 20:42 <Demetrio Alva APRN - Last Filed: 11/18/24 22:07> Source: patient, family and RN notes reviewed <Demetrio Alva APRN - Last Filed: 11/18/24 22:07> Mode of arrival: ambulatory <Demetrio Alva APRN - Last Filed: 11/18/24 22:07> Limitations: no limitations <Demetrio Alva APRN - Last Filed: 11/18/24 22:07> History of Present Illness HPI Narrative: 79 y/o WM in the ED for c/o generalized weakness X3 weeks. Pt states that he has become weaker, endorses stumbles but no falls. Pt denies fever, states he hasn't felt febrile, but they have never checked his temp. Pt has endorses chills per , resolved w/ blanket use. Pt take Tylenol daily for chronic hip pain. Pt denies any SMITH, dizziness, CP, SOB, abd pain, myalgias, hematuria, or dysuria. Pt endorses a single issue of urinary incontinence, but has chronic prostate issues and is trying to get in w/ a urologist. <Demetrio Alva APRN - Last Filed: 11/18/24 22:07> Related Data Home medications: Home Medications ?Medication ?Instructions ?Recorded ?Confirmed ?Last Taken ?Type mecobalamin (vitamin B12) 500 mcg 500 mcg PO DAILY 08/30/24 09/05/24 Unknown History chewable tablet <Demetrio Alva APRN - Last Filed: 11/18/24 22:07> Allergies/Adverse reactions: Allergies Allergy/AdvReac Type Severity Reaction Status Date / Time No Known Allergies Allergy Verified 11/19/24 01:10 <Demetrio Alva APRN - Last Filed: 11/18/24 22:07> Review of Systems Review of Systems: CONSTITUTIONAL: Denies fever, chills, or sweats. EYES: Denies visual changes, redness, or discharge. ENT: Denies rhinorrhea, congestion, sore throat, or otalgia. CARDIOVASCULAR: Denies chest pain, palpitations, or edema. RESPIRATORY: Denies cough or dyspnea. GASTROINTESTINAL: Denies abdominal pain, nausea, vomiting, or diarrhea. GENITOURINARY: Denies dysuria or hematuria. SKIN: Denies rash or itching. MUSCULOSKELETAL: Denies back pain, joint pain, or myalgia. Endorses chronic hip pain. NEUROLOGIC: Denies headache, numbness. Endorses generalized weakness. PSYCHIATRIC: Denies anxiety or depression. <Demetrio Alva APRN - Last Filed: 11/18/24 22:07> CONSTITUTIONAL: Reports chills CARDIOVASCULAR: Denies chest pain RESPIRATORY: Denies dyspnea. GASTROINTESTINAL: Denies abdominal pain, nausea, vomiting, or diarrhea. GENITOURINARY: Denies dysuria or hematuria. MUSCULOSKELETAL: Endorses chronic hip pain. NEUROLOGIC: Denies headache, numbness. Endorses generalized weakness. <Sulma Mejia PA-C - Last Filed: 11/19/24 02:59> All systems reviewed & are unremarkable except as noted in HPI and below <Sulma Mejia PA-C - Last Filed: 11/19/24 02:59> [facility], [facility] Past Medical History Medical History: Medical History COVID-19 virus infection Dysphagia Chest pain Chest pain Hospital discharge follow-up Sensation of feeling hot Acute UTI Basal cell carcinoma of nose Type 2 diabetes mellitus with peripheral neuropathy Diabetic peripheral neuropathy AK (actinic keratosis) Kidney stones Insomnia Cataracts, bilateral Maturing Essential hypertension BPH (benign prostatic hyperplasia) Chronic kidney disease, stage 3b Dr. Mcnamara COVID-19 (~07/2021) Colorectal cancer Surgery and Radiation 2004 Depression GERD (gastroesophageal reflux disease) Osteoarthritis Osteoporosis Renal carcinoma Tremors of nervous system Type 2 diabetes mellitus with other diabetic kidney complication Hemoglobin A1c 6 28 July 2022 Hyperlipidemia <Demetrio Alva APRN - Last Filed: 11/18/24 22:07> Surgical History Surgical History: Surgical History History of appendectomy Hx of cholecystectomy History of tonsillectomy Normal colonoscopy (07/2020) History of resection of rectum (2004) H/O hernia repair <Demetrio Alva APRN - Last Filed: 11/18/24 22:07> Family History Family History: Family History Mother Diabetes mellitus Hypertension Father Family history unknown Other Family history of arthritis Family history of malignant neoplasm <Demetrio Alva APRN - Last Filed: 11/18/24 22:07> Social History Social History: Social History Social History: He lives in [place] with his of 60 years. They have 3 children. He drinks a couple of glasses of wine a week. He is a former smoker he used to smoke up to 2 packs per day for approximately 30 years. He denies any illicit substance use. He used to work in sales. Code status: DNR/DNI Surrogate decision maker: Smoking packs per day: 1.5 Smoking cigarettes per day: 30.0 Years smoked: 33 Smoking pack-years: 49.50 Smoking status: Former smoker Tobacco type: cigarettes Smoking end date: 05/30/88 Alcohol intake: current Drinks per week: 2 Alcohol use details: wine occasionally Substance use: never Do You Feel Safe in your Home?: Yes Lack of Transportation: No Lack of Food: Never True Current Housing: I Have Housing Concerned About Future Housing: No Difficulty Paying Gas/Electric Bills: No Difficulty Paying for Meds: No Currently Unemployed: No Education: High School Diploma/GED Difficulty w/ Childcare or Family Care: No Living arrangements: with family Gender identity (if verbalized by the patient): Male Spiritual care concerns: No <Demetrio Alva APRN - Last Filed: 11/18/24 22:07> Exam Narrative: GENERAL: Well-appearing, well-nourished, and in no acute distress. HEAD: Normocephalic, atraumatic. EYES: PERRLA and EOMI. ENT: Nares clear, no rhinorrhea or epistaxis. Mucous membranes moist. NECK: Supple. CHEST: Clear to auscultation. No respiratory distress. HEART: Regular rate and rhythm. No murmur heard. Normal peripheral pulses. ABDOMEN: Soft, nontender, nondistended, normal active bowel sounds. EXTREMITIES: Normal range of motion. Slight, non-pitting BLE edema. SKIN: Warm, dry, no rash. NEURO: No focal deficits. Alert and oriented x3. PSYCH: Normal mood and affect. <Demetrio Alva APRN - Last Filed: 11/18/24 22:07> GENERAL: Elderly, well-nourished, and in no acute distress. HEAD: Normocephalic, atraumatic. EYES: PERRLA and EOMI. ENT: Nares clear, no rhinorrhea or epistaxis. Mucous membranes moist. NECK: Supple. CHEST: Clear to auscultation. No respiratory distress. HEART: Regular rate and rhythm. No murmur heard. Normal peripheral pulses. ABDOMEN: Soft, nontender, nondistended, normal active bowel sounds. EXTREMITIES: Normal range of motion. Slight, non-pitting BLE edema. SKIN: Warm, dry, no rash. NEURO: No focal deficits. Alert and oriented x3. PSYCH: Normal mood and affect. <Sulma Mejia PA-C - Last Filed: 11/19/24 02:59> Course Course Emergency Course: Patient updated on his workup and recommendation for admission <Sulma Mejia PA-C - Last Filed: 11/19/24 02:59> Consultations Consultation #1: Spoke with hospitalist about patient and workup who accepts admission <Sulma Mejia PA-C - Last Filed: 11/19/24 02:59> Date: 11/19/24 <JOSE Anderson Last Filed: 11/19/24 02:59> Vital Signs Vital signs: Vital Signs Temperature 100.2 F H 11/18/24 20:42 Pulse Rate 79 11/18/24 20:42 Respiratory Rate 19 11/18/24 20:42 Blood Pressure 123/63 11/18/24 20:42 Pulse Oximetry 97 11/18/24 20:42 Oxygen Delivery Room Air 11/18/24 20:42 Temperature 100.2 F H 11/18/24 20:42 Pulse Rate 63 11/18/24 23:55 Respiratory Rate 16 11/18/24 23:55 Blood Pressure 117/66 11/18/24 23:55 Pulse Oximetry 96 11/18/24 23:55 Oxygen Delivery Room Air 11/18/24 20:42 <Demetrio Alva APRN - Last Filed: 11/18/24 22:07> Vital Signs Temperature 100.2 F H 11/18/24 20:42 Pulse Rate 79 11/18/24 20:42 Respiratory Rate 19 11/18/24 20:42 Blood Pressure 123/63 11/18/24 20:42 Pulse Oximetry 97 11/18/24 20:42 Oxygen Delivery Room Air 11/18/24 20:42 Temperature 100.2 F H 11/18/24 20:42 Pulse Rate 63 11/18/24 23:55 Respiratory Rate 16 11/18/24 23:55 Blood Pressure 117/66 11/18/24 23:55 Pulse Oximetry 96 11/18/24 23:55 Oxygen Delivery Room Air 11/18/24 20:42 <Sulma Mejia PA-C - Last Filed: 11/19/24 02:59> MDM - Weakness MDM Narrative Medical decision making narrative: Awaiting further lab work. Care of patient signed out to ISH Russo. <Demetrio Alva, YAO - Last Filed: 11/18/24 22:07> Awaiting further lab work. Care of patient signed out to ISH Russo. Patient presents to the emergency department for generalized weakness, fevers. Temperature a 100.2? upon arrival, other vitals are stable. CBC with leukocytosis to 14. Also shows normocytic anemia hemoglobin of 12.1. Metabolic panel without concerning findings. Lactic acid is not elevated. Urine without evidence of infection. This was sent for culture. Blood cultures obtained, started on IV antibiotics. Chest x-ray without acute cardiopulmonary abnormality. CT abdomen and pelvis shows findings of cystitis. Patient updated on his workup and recommendation for admission. Spoke with hospitalist about patient and workup who accepts admission <Sulma Mejia PA-C - Last Filed: 11/19/24 02:59> Differential Diagnosis Differential diagnosis: Likely sepsis, dehydration and other (UTI, kidney stone, electrolyte derangement, pneumonia) <Sulma Mejia PA-C - Last Filed: 11/19/24 02:59> Lab Data Attestation: I reviewed the patient's lab results. <Sulma Mejia PA-C - Last Filed: 11/19/24 02:59> Result diagrams: 11/18/24 22:13 11/18/24 22:13 <Demetrio Alva APRN - Last Filed: 11/18/24 22:07> Labs: Lab Results 11/18/24 11/18/24 11/18/24 Range/Units 20:45 22:13 22:14 WBC 14.0 H (4.5-10.0) K/mm3 RBC 3.76 L (4.6-6.20) M/mm3 Hgb 12.1 L (14.0-18.0) g/dL Hct 35.4 L (42.0-52.0) % MCV 94.1 (80-100) fl MCH 32.2 (26-34) pg MCHC 34.2 (32-36) g/dl RDW 12.2 (11.5-14.5) % Plt Count 147 L (150-375) k/mm3 MPV 10.6 H (7.4-10.4) fl Immature Gran % (Auto) Not Reportable Neut % (Auto) Not Reportable Lymph % (Auto) Not Reportable [place] % (Auto) Not Reportable Eos % (Auto) Not Reportable Baso % (Auto) Not Reportable Lymph # (Auto) Not Reportable [place] # (Auto) Not Reportable Eos # (Auto) Not Reportable Baso # (Auto) Not Reportable Abs Immat Gran (auto) Not Reportable Absolute Neuts (auto) Not Reportable Absolute Nucleated RBC Not Reportable Total Counted 100 Neutrophils % (Manual) 91 H (46-73) % Band Neutrophils % 4 (0-6) % Lymphocytes % (Manual) 2.0 L (18-44) % Monocytes % (Manual) 3 (3-9) % Nucleated RBC % Not Reportable Abs Neuts (Manual) 13.30 H (1.3-6.7) K/mm3 Abs Lymphs (Manual) 0.28 L (1.1-4.5) K/mm3 Abs Monocytes (Manual) 0.42 (0.1-0.90) K/mm3 Smudge Cells Present Platelet Estimate Slightly decreased (Adequate) Clumped Platelets Present % Immature Plt Fraction 2.9 (0.9-11.2) % Anisocytosis 1+ Schistocytes None seen PT 14.0 (11.1-14.7) Seconds INR 1.1 APTT 30.8 (22.3-36.8) Seconds Sodium 131 L (137-145) mmol/L Potassium 4.2 (3.4-5.0) mmol/L Chloride 102 (98-107) mmol/L Carbon Dioxide 21 L (22-30) mmol/L Anion Gap 8 (4-12) mmol/L BUN 20 (9-20) mg/dL Creatinine 1.22 (0.7-1.3) mg/dL Estim Creat Clear Calc 44 ml/min Estimated GFR 57 L (59 - ) Glucose 232 H (65-110) mg/dL POC Capillary Glucose 239 H (65-105) mg/dl Lactic Acid 0.9 (0.7-2.0) mmol/L Calcium 9.3 (8.4-10.2) mg/dL Total Bilirubin 0.8 (0.2-1.3) mg/dL AST 22 (17-59) U/L ALT 18 (6-50) U/L Alkaline Phosphatase 41 (38-126) U/L Troponin I < 0.012 (0.000-0.034) ng/mL C-Reactive Protein 3.4 H (<1.0) mg/dL Total Protein 7.0 (6.3-8.2) g/dL Albumin 3.9 (3.5-5.1) g/dL Urine Color (Yellow) Urine Appearance (Clear) Urine pH (5.0-9.0) Ur Specific [place] (1.001-1.035) Urine Protein (Negative) mg/dL Urine Glucose (UA) (Negative) mg/dL Urine Ketones (Negative) mg/dL Ur Blood (Man) (Negative) Urine Nitrate (Negative) Urine Bilirubin (Negative) Urine Urobilinogen (<2.0) mg/dL Leukocyte Esterase Rfl (Negative) [place]/UL Urine RBC (0-2) /hpf Urine WBC (0-3) /hpf Ur Squamous Epith Cells (Few) /hpf Urine Bacteria /hpf Urine Casts // Range/Units 23:36 WBC (4.5-10.0) K/mm3 RBC (4.6-6.20) M/mm3 Hgb (14.0-18.0) g/dL Hct (42.0-52.0) % MCV (80-100) fl MCH (26-34) pg MCHC (32-36) g/dl RDW (11.5-14.5) % Plt Count (150-375) k/mm3 MPV (7.4-10.4) fl Immature Gran % (Auto) Neut % (Auto) Lymph % (Auto) [place] % (Auto) Eos % (Auto) Baso % (Auto) Lymph # (Auto) [place] # (Auto) Eos # (Auto) Baso # (Auto) Abs Immat Gran (auto) Absolute Neuts (auto) Absolute Nucleated RBC Total Counted Neutrophils % (Manual) (46-73) % Band Neutrophils % (0-6) % Lymphocytes % (Manual) (18-44) % Monocytes % (Manual) (3-9) % Nucleated RBC % Abs Neuts (Manual) (1.3-6.7) K/mm3 Abs Lymphs (Manual) (1.1-4.5) K/mm3 Abs Monocytes (Manual) (0.1-0.90) K/mm3 Smudge Cells Platelet Estimate (Adequate) Clumped Platelets % Immature Plt Fraction (0.9-11.2) % Anisocytosis Schistocytes PT (11.1-14.7) Seconds INR APTT (22.3-36.8) Seconds Sodium (137-145) mmol/L Potassium (3.4-5.0) mmol/L Chloride (98-107) mmol/L Carbon Dioxide (22-30) mmol/L Anion Gap (4-12) mmol/L BUN (9-20) mg/dL Creatinine (0.7-1.3) mg/dL Estim Creat Clear Calc ml/min Estimated GFR (59 - ) Glucose (65-110) mg/dL POC Capillary Glucose (65-105) mg/dl Lactic Acid (0.7-2.0) mmol/L Calcium (8.4-10.2) mg/dL Total Bilirubin (0.2-1.3) mg/dL AST (17-59) U/L ALT (6-50) U/L Alkaline Phosphatase (38-126) U/L Troponin I (0.000-0.034) ng/mL C-Reactive Protein (<1.0) mg/dL Total Protein (6.3-8.2) g/dL Albumin (3.5-5.1) g/dL Urine Color Yellow (Yellow) Urine Appearance Clear (Clear) Urine pH 5.5 (5.0-9.0) Ur Specific [place] 1.016 (1.001-1.035) Urine Protein Negative (Negative) mg/dL Urine Glucose (UA) 1+ H (Negative) mg/dL Urine Ketones Negative (Negative) mg/dL Ur Blood (Man) Negative (Negative) Urine Nitrate Positive H (Negative) Urine Bilirubin Negative (Negative) Urine Urobilinogen 1.0 (<2.0) mg/dL Leukocyte Esterase Rfl 2+ H (Negative) [place]/UL Urine RBC 0-2 (0-2) /hpf Urine WBC 21-50 H (0-3) /hpf Ur Squamous Epith Cells None seen (Few) /hpf Urine Bacteria 4+ H /hpf Urine Casts 0-2 <Demetrio Alva, PSYCHOLOGIST COUNSELING - Last Filed: 11/18/24 22:07> Lab Results 11/18/24 11/18/24 11/18/24 Range/Units 20:45 22:13 22:14 WBC 14.0 H (4.5-10.0) K/mm3 RBC 3.76 L (4.6-6.20) M/mm3 Hgb 12.1 L (14.0-18.0) g/dL Hct 35.4 L (42.0-52.0) % MCV 94.1 (80-100) fl MCH 32.2 (26-34) pg MCHC 34.2 (32-36) g/dl RDW 12.2 (11.5-14.5) % Plt Count 147 L (150-375) k/mm3 MPV 10.6 H (7.4-10.4) fl Immature Gran % (Auto) Not Reportable Neut % (Auto) Not Reportable Lymph % (Auto) Not Reportable [place] % (Auto) Not Reportable Eos % (Auto) Not Reportable Baso % (Auto) Not Reportable Lymph # (Auto) Not Reportable [place] # (Auto) Not Reportable Eos # (Auto) Not Reportable Baso # (Auto) Not Reportable Abs Immat Gran (auto) Not Reportable Absolute Neuts (auto) Not Reportable Absolute Nucleated RBC Not Reportable Total Counted 100 Neutrophils % (Manual) 91 H (46-73) % Band Neutrophils % 4 (0-6) % Lymphocytes % (Manual) 2.0 L (18-44) % Monocytes % (Manual) 3 (3-9) % Nucleated RBC % Not Reportable Abs Neuts (Manual) 13.30 H (1.3-6.7) K/mm3 Abs Lymphs (Manual) 0.28 L (1.1-4.5) K/mm3 Abs Monocytes (Manual) 0.42 (0.1-0.90) K/mm3 Smudge Cells Present Platelet Estimate Slightly decreased (Adequate) Clumped Platelets Present % Immature Plt Fraction 2.9 (0.9-11.2) % Anisocytosis 1+ Schistocytes None seen PT 14.0 (11.1-14.7) Seconds INR 1.1 APTT 30.8 (22.3-36.8) Seconds Sodium 131 L (137-145) mmol/L Potassium 4.2 (3.4-5.0) mmol/L Chloride 102 (98-107) mmol/L Carbon Dioxide 21 L (22-30) mmol/L Anion Gap 8 (4-12) mmol/L BUN 20 (9-20) mg/dL Creatinine 1.22 (0.7-1.3) mg/dL Estim Creat Clear Calc 44 ml/min Estimated GFR 57 L (59 - ) Glucose 232 H (65-110) mg/dL POC Capillary Glucose 239 H (65-105) mg/dl Lactic Acid 0.9 (0.7-2.0) mmol/L Calcium 9.3 (8.4-10.2) mg/dL Total Bilirubin 0.8 (0.2-1.3) mg/dL AST 22 (17-59) U/L ALT 18 (6-50) U/L Alkaline Phosphatase 41 (38-126) U/L Troponin I < 0.012 (0.000-0.034) ng/mL C-Reactive Protein 3.4 H (<1.0) mg/dL Total Protein 7.0 (6.3-8.2) g/dL Albumin 3.9 (3.5-5.1) g/dL Urine Color (Yellow) Urine Appearance (Clear) Urine pH (5.0-9.0) Ur Specific [place] (1.001-1.035) Urine Protein (Negative) mg/dL Urine Glucose (UA) (Negative) mg/dL Urine Ketones (Negative) mg/dL Ur Blood (Man) (Negative) Urine Nitrate (Negative) Urine Bilirubin (Negative) Urine Urobilinogen (<2.0) mg/dL Leukocyte Esterase Rfl (Negative) [place]/UL Urine RBC (0-2) /hpf Urine WBC (0-3) /hpf Ur Squamous Epith Cells (Few) /hpf Urine Bacteria /hpf Urine Casts 11/18/24 Range/Units 23:36 WBC (4.5-10.0) K/mm3 RBC (4.6-6.20) M/mm3 Hgb (14.0-18.0) g/dL Hct (42.0-52.0) % MCV (80-100) fl MCH (26-34) pg MCHC (32-36) g/dl RDW (11.5-14.5) % Plt Count (150-375) k/mm3 MPV (7.4-10.4) fl Immature Gran % (Auto) Neut % (Auto) Lymph % (Auto) [place] % (Auto) Eos % (Auto) Baso % (Auto) Lymph # (Auto) [place] # (Auto) Eos # (Auto) Baso # (Auto) Abs Immat Gran (auto) Absolute Neuts (auto) Absolute Nucleated RBC Total Counted Neutrophils % (Manual) (46-73) % Band Neutrophils % (0-6) % Lymphocytes % (Manual) (18-44) % Monocytes % (Manual) (3-9) % Nucleated RBC % Abs Neuts (Manual) (1.3-6.7) K/mm3 Abs Lymphs (Manual) (1.1-4.5) K/mm3 Abs Monocytes (Manual) (0.1-0.90) K/mm3 Smudge Cells Platelet Estimate (Adequate) Clumped Platelets % Immature Plt Fraction (0.9-11.2) % Anisocytosis Schistocytes PT (11.1-14.7) Seconds INR APTT (22.3-36.8) Seconds Sodium (137-145) mmol/L Potassium (3.4-5.0) mmol/L Chloride (98-107) mmol/L Carbon Dioxide (22-30) mmol/L Anion Gap (4-12) mmol/L BUN (9-20) mg/dL Creatinine (0.7-1.3) mg/dL Estim Creat Clear Calc ml/min Estimated GFR (59 - ) Glucose (65-110) mg/dL POC Capillary Glucose (65-105) mg/dl Lactic Acid (0.7-2.0) mmol/L Calcium (8.4-10.2) mg/dL Total Bilirubin (0.2-1.3) mg/dL AST (17-59) U/L ALT (6-50) U/L Alkaline Phosphatase (38-126) U/L Troponin I (0.000-0.034) ng/mL C-Reactive Protein (<1.0) mg/dL Total Protein (6.3-8.2) g/dL Albumin (3.5-5.1) g/dL Urine Color Yellow (Yellow) Urine Appearance Clear (Clear) Urine pH 5.5 (5.0-9.0) Ur Specific [place] 1.016 (1.001-1.035) Urine Protein Negative (Negative) mg/dL Urine Glucose (UA) 1+ H (Negative) mg/dL Urine Ketones Negative (Negative) mg/dL Ur Blood (Man) Negative (Negative) Urine Nitrate Positive H (Negative) Urine Bilirubin Negative (Negative) Urine Urobilinogen 1.0 (<2.0) mg/dL Leukocyte Esterase Rfl 2+ H (Negative) [place]/UL Urine RBC 0-2 (0-2) /hpf Urine WBC 21-50 H (0-3) /hpf Ur Squamous Epith Cells None seen (Few) /hpf Urine Bacteria 4+ H /hpf Urine Casts 0-2 <Sulma Mejia PA-C - Last Filed: 11/19/24 02:59> Imaging Data Radiologist's impression: ITS Impressions Chest X-Ray 11/18/24 21:22 IMPRESSION: No acute cardiopulmonary pathology. Cardiomegaly. <Demetrio Alva, PSYCHOLOGIST COUNSELING - Last Filed: 11/18/24 22:07> ITS Impressions Chest X-Ray 11/18/24 21:22 IMPRESSION: No acute cardiopulmonary pathology. Cardiomegaly. CT abdomen and pelvis: Asymmetric wall thickening along the left side of the urinary bladder, correlate for UTI <Sulma Mejia PA-C - Last Filed: 11/19/24 02:59> Critical Care Time Critical Care Time Critical Care Time: No <Sulma Mejia PA-C - Last Filed: 11/19/24 02:59> Discharge Plan Discharge Clinical Impression: Acute UTI <Demetrio Alva APRN - Last Filed: 11/18/24 22:07> Patient Disposition: Still a Patient <Demetrio Alva APRN - Last Filed: 11/18/24 22:07> Condition: Stable <Demetrio Alva APRN - Last Filed: 11/18/24 22:07> Patient Language: Tristanian <Demetrio Alva APRN - Last Filed: 11/18/24 22:07> Prescriptions: No Action mecobalamin (vitamin B12) 500 mcg tablet,chewable 500 mcg PO DAILY omeprazole 40 mg capsule,delayed release(DR/EC) See Rx Instructions .ROUTE .COMPLEX Qty: 90 1RF Dose Instruction: Take 1 capsule by mouth once daily Rx Instructions: Take 1 capsule by mouth once daily rosuvastatin 20 mg tablet See Rx Instructions .ROUTE .COMPLEX Qty: 90 1RF Dose Instruction: Take 1 tablet by mouth once daily Rx Instructions: Take 1 tablet by mouth once daily fluoxetine 20 mg capsule See Rx Instructions .ROUTE .COMPLEX Qty: 90 1RF Dose Instruction: Take 1 capsule by mouth once daily Rx Instructions: Take 1 capsule by mouth once daily lisinopril 20 mg tablet See Rx Instructions .ROUTE .COMPLEX Qty: 90 1RF Dose Instruction: Take 1 tablet by mouth once daily Rx Instructions: Take 1 tablet by mouth once daily metformin 500 mg tablet extended release 24 hr See Rx Instructions .ROUTE .COMPLEX Qty: 90 1RF Dose Instruction: Take 1 tablet by mouth once daily Rx Instructions: Take 1 tablet by mouth once daily tamsulosin 0.4 mg capsule See Rx Instructions .ROUTE .COMPLEX Qty: 90 1RF Dose Instruction: Take 1 capsule by mouth once daily Rx Instructions: Take 1 capsule by mouth once daily finasteride 5 mg tablet 5 mg PO DAILY Qty: 90 1RF insulin glargine [Lantus Solostar U-100 Insulin] 100 unit/mL (3 mL) insulin pen 16 unit subcut DAILY Qty: 15 0RF <Demetrio Alva APRN - Last Filed: 11/18/24 22:07> Follow-up/Referrals: Gladis Zheng, [facility] [Primary Care Provider] - <Demetrio Alva, PSYCHOLOGIST COUNSELING - Last Filed: 11/18/24 22:07>
[2024-11-18] MEDS: ACETAMINOPHEN 325 MG TABLET 650 MG PO (21:37)
[2024-11-18 22:27] LABS: Hematocrit 35.4 % (42.0-52.0); Hemoglobin 12.1 g/dL (14.0-18.0); Immature Platelet Fraction Pct 2.9 % (0.9-11.2); Mean Corpuscular HGB Conc 34.2 g/dl (32-36); Mean Corpuscular Hemoglobin 32.2 pg (26-34); Mean Corpuscular Volume 94.1 fl (80-100); Mean Platelet Volume 10.6 fl (7.4-10.4); Platelet Count Result 147 k/mm3 (150-375); Red Blood Count 3.76 M/mm3 (4.6-6.20); Red Cell Distribution Width 12.2 % (11.5-14.5)
[2024-11-18 22:38] LABS: Lactic Acid Reflex 0.9 mmol/L (0.7-2.0)
[2024-11-18 22:39] VITALS: BP 119/61; PULSE 66; RESP 16; O2SAT 97
[2024-11-18 22:40] LABS: Alanine Aminotransferase 18 U/L (6-50); Albumin Level 3.9 g/dL (3.5-5.1); Alkaline Phosphatase 41 U/L (38-126); Anion Gap 8 mmol/L (4-12); Aspartate Amino Transferase 22 U/L (17-59); Bilirubin,Total 0.8 mg/dL (0.2-1.3); Blood Urea Nitrogen 20 mg/dL (9-20); CRP. 3.4 mg/dL (<1.0); Calcium 9.3 mg/dL (8.4-10.2); Carbon Dioxide 21 mmol/L (22-30); Chloride 102 mmol/L (98-107); Estimated CRCL calculation 44 ml/min; Estimated Glomerular Filt Rate 57; Glucose 232 mg/dL (65-110); Potassium 4.2 mmol/L (3.4-5.0); Sodium 131 mmol/L (137-145)
[2024-11-18 22:41] LABS: INR 1.1
[2024-11-18 22:42] LABS: Partial Thromboplastin Time 30.8 Seconds (22.3-36.8)
[2024-11-18 22:49] LABS: Troponin I < 0.012 ng/mL (0.000-0.034)
[2024-11-18 22:58] LABS: Anisocytosis 1+; Band Neutrophils Percent 4 % (0-6); Lymphocytes Absolute Manual 0.28 K/mm3 (1.1-4.5); Monocytes Absolute Manual 0.42 K/mm3 (0.1-0.90); Monocytes Percent Manual 3 % (3-9); Neutrophils Percent Manual 91 % (46-73); Platelet Clumps Present; Platelet Estimate Slightly Decreased (Adequate); Schistocytes None Seen; Smudge Cells PRESENT; Total Cells Counted 100
[2024-11-18 23:55] VITALS: BP 117/66; PULSE 63; RESP 16; O2SAT 96
[2024-11-18 23:59] LABS: Add Urine Microscopic? YES; Appearance Urine Clear (Clear); Bacteria Urine 4+ /hpf; Bilirubin Urine Negative (Negative); Blood Urine Negative (Negative); Color Urine Yellow (Yellow); Glucose Urine UA 1+ mg/dL (Negative); Ketones Urine Negative (Negative); Leukocyte Esterase Ur 2+ LEU/UL (Negative); Nitrate Urine Positive (Negative); Non Pathogenic Casts 0-2; Protein Urine Negative (Negative); RBC Urine 0-2 /hpf (0-2); Specific Grav Ur 1.016 (1.001-1.035); Squamous Epithelial Cell Urine None Seen /hpf (Few); WBC Urine 21-50 /hpf (0-3); pH Urine 5.5 (5.0-9.0)
[2024-11-19 04:17] VITALS: BP 116/81; PULSE 69; RESP 14; O2SAT 98
[2024-11-19 04:51] VITALS: BMI 30.3
[2024-11-19 04:56] VITALS: BP 131/66; PULSE 98; RESP 16; O2SAT 100
[2024-11-19] MEDS: ACETAMINOPHEN 325 MG TABLET 650 MG PO (05:41)
[2024-11-19 06:00] VITALS: BP 125/50; PULSE 64; RESP 18; TEMP 36.4; O2SAT 99
--- NOTE | 2024-11-19 06:47 | ADMGEN ---
This patient, Bertin Jeff, was admitted to 3 [facility] Surg Room 332-01. Patient/family oriented to hospital policies and general routines including ID bracelet, bed and alarms, visiting hours, pain management, procedures, bathroom and other care routines, personal items, smoking policy, room service/diet, and visiting hours. Information on how to activate the Rapid Response Team has been discussed. Patient/Family are encouraged to report perceived risks to care and to ask questions if they do not understand what they are told or what they should do. Ad[facility] for weakness, tremors and UTI.
--- NOTE | 2024-11-19 07:26 | P.HP_ITS ---
H&P: HPI History of Present Illness Date/Time: 11/19/24 07:26 Chief Complaint: Weakness Narrative: Bertin Jeff is an 79-year-old male with a past medical history of T2DM, HTN, hyperlipidemia, CKD stage 3b, GERD, and BPH who presents to the hospital with generalized weakness and increased urinary frequency for the past couple of weeks. He states that he has had issues with an unsteady gait for ?a long time? but states that over the past several days/couple of weeks, it seems of gotten worse. Also endorses increased urinary frequency for the past 3 days, denies any hematuria or dysuria. Denies any falls to the ground or hitting his head. Denies any chest pain, shortness a breath, nausea/vomiting, abdominal pain. Denies any fevers, but does endorse chills. History of BPH and has been trying to get an appointment with a urologist. No evidence of neurological deficit on exam. Denies any slurred speech. In ED: 100.2F, 63 HR, 16RR, 117/66, 96% on RA WBC 14, Hgb 12.1, hct 35.4, plt 147, 91% neutrophil, Na 131, K 4.2, BUN 20, Cr 1.22, Glucose 232, LFTs wnl Chest XR: No acute cardiopulmonary pathology. Cardiomegaly. Abd/Pelvis CT: 2 cm irregular semisolid nodule or consolidation the right lower lobe. This is suspicious for focal pneumonitis. Follow-up exam in 1-3 months recommended to reassess. Probable mild wall thickening along the left side of the urinary bladder. This could reflect cystitis. Neoplasm felt to be less likely, though difficult to completely exclude. Correlate clinically. Consider cystoscopy as indicated. Review of Systems Review of Systems: All systems reviewed & are unremarkable except as noted in HPI and below PMFSH Past Medical History Medical History COVID-19 virus infection Dysphagia Chest pain Chest pain Hospital discharge follow-up Sensation of feeling hot Acute UTI Basal cell carcinoma of nose Type 2 diabetes mellitus with peripheral neuropathy Diabetic peripheral neuropathy AK (actinic keratosis) Kidney stones Insomnia Cataracts, bilateral Maturing Essential hypertension BPH (benign prostatic hyperplasia) Chronic kidney disease, stage 3b Dr. Mcnamara COVID-19 (~07/2021) Colorectal cancer Surgery and Radiation 2004 Depression GERD (gastroesophageal reflux disease) Osteoarthritis Osteoporosis Renal carcinoma Tremors of nervous system Type 2 diabetes mellitus with other diabetic kidney complication Hemoglobin A1c 6 28 July 2022 Hyperlipidemia Surgical History Surgical History History of appendectomy Hx of cholecystectomy History of tonsillectomy Normal colonoscopy (07/2020) History of resection of rectum (2004) H/O hernia repair Family History Family History Mother Diabetes mellitus Hypertension Father Family history unknown Other Family history of arthritis Family history of malignant neoplasm Social History Social History Social History: He lives in [place] with his of 60 years. They have 3 children. He drinks a couple of glasses of wine a week. He is a former smoker he used to smoke up to 2 packs per day for approximately 30 years. He denies any illicit substance use. He used to work in sales. Code status: DNR/DNI Surrogate decision maker: Smoking packs per day: 1.5 Smoking cigarettes per day: 30.0 Years smoked: 33 Smoking pack-years: 49.50 Smoking status: Former smoker Tobacco type: cigarettes Second hand tobacco smoke exposure: No Smoking end date: 05/30/88 Alcohol intake: current Drinks per week: 1 Alcohol use details: wine occasionally Substance use: never Do You Feel Safe in your Home?: Yes Lack of Transportation: No Lack of Food: Never True Current Housing: I Have Housing Concerned About Future Housing: No Difficulty Paying Gas/Electric Bills: No Difficulty Paying for Meds: No Currently Unemployed: No Education: Decline to Answer Difficulty w/ Childcare or Family Care: No Living arrangements: with family Gender identity (if verbalized by the patient): Male Spiritual care concerns: No Meds Home Medications and Allergies Home Medications ?Medication ?Instructions ?Recorded ?Confirmed ?Type omeprazole 40 mg capsule,delayed See Rx Instructions .Route 06/26/24 11/19/24 Rx release .COMPLEX #90 caps rosuvastatin 20 mg tablet See Rx Instructions .Route 07/09/24 11/19/24 Rx .COMPLEX #90 tabs fluoxetine 20 mg capsule See Rx Instructions .Route 08/06/24 11/19/24 Rx .COMPLEX #90 caps mecobalamin (vitamin B12) 500 mcg 500 mcg PO DAILY 08/30/24 11/19/24 History chewable tablet finasteride 5 mg tablet 5 mg PO DAILY #90 tabs 10/30/24 11/19/24 Rx insulin glargine 100 unit/mL (3 16 unit (0.16 mL) subcut DAILY #15 10/30/24 11/19/24 Rx mL) subcutaneous pen (Lantus mL Solostar U-100 Insulin) lisinopril 20 mg tablet See Rx Instructions .Route 10/30/24 11/19/24 Rx .COMPLEX #90 tabs metformin 500 mg tablet,extended See Rx Instructions .Route 10/30/24 11/19/24 Rx release 24 hr .COMPLEX #90 tabs tamsulosin 0.4 mg capsule See Rx Instructions .Route 10/30/24 11/19/24 Rx .COMPLEX #90 caps Allergies Allergy/AdvReac Type Severity Reaction Status Date / Time No Known Allergies Allergy Verified 11/19/24 01:10 Vital Signs Vital Signs - 24 hr 11/18/24 20:42 11/18/24 20:53 11/18/24 22:39 Temperature 100.2 F H Pulse Rate 79 85 66 Respiratory Rate 19 16 Blood Pressure 123/63 119/61 Pulse Oximetry 97 97 Oxygen Delivery Room Air 11/18/24 23:55 11/19/24 04:17 11/19/24 04:56 Temperature Pulse Rate 63 69 98 Respiratory Rate 16 14 16 Blood Pressure 117/66 116/81 131/66 Pulse Oximetry 96 98 100 Oxygen Delivery 11/19/24 06:00 Temperature 97.6 F Pulse Rate 64 Respiratory Rate 18 Blood Pressure 125/50 L Pulse Oximetry 99 Oxygen Delivery Exam Narrative: Gen - well appearing male in no acute respiratory distress who is nontoxic- appearing lying semi recumbent in bed HEENT - normocephalic. Pupils equal round and reactive. Extraocular motions intact. Sclera clear and anicteric. Nares patent Moist mucous membranes. Neck - neck was supple. No dominant adenopathy, thyromegaly or masses. 2+ carotid upstrokes without bruits. Chest - lungs are clear to auscultation bilaterally. No wheezes or crackles. CV - heart was regular rate and rhythm. S1-S2. No murmurs gallops or rubs. Abd - abdomen was soft. Nontender. Nondistended. Positive bowel sounds. No organomegaly or masses. Ext - no clubbing, cyanosis or edema. 2+ DP pulses bilaterally. Neuro - patient is alert and oriented x4. Strength is 5/5 in both upper and lower extremities. Cranial nerves 2-12 are intact. Speech is clear. Psych - normal mood and affect. Patient is pleasant and cooperative. Skin - warm and dry. No rashes noted. H&P: Results Labs Labs: Short CBC 11/18/24 Range/Units 22:13 WBC 14.0 H (4.5-10.0) K/mm3 Hgb 12.1 L (14.0-18.0) g/dL Hct 35.4 L (42.0-52.0) % Plt Count 147 L (150-375) k/mm3 BMP 11/18/24 22:13 Sodium 131 L Potassium 4.2 Chloride 102 Carbon Dioxide 21 L BUN 20 Creatinine 1.22 Glucose 232 H Calcium 9.3 Cardiac Enzymes 11/18/24 Range/Units 22:13 Troponin I < 0.012 (0.000-0.034) ng/mL Liver Function 11/18/24 Range/Units 22:13 Total Bilirubin 0.8 (0.2-1.3) mg/dL AST 22 (17-59) U/L ALT 18 (6-50) U/L Alkaline Phosphatase 41 (38-126) U/L Albumin 3.9 (3.5-5.1) g/dL Urine 11/18/24 Range/Units 23:36 Urine Color Yellow (Yellow) Urine Appearance Clear (Clear) Urine pH 5.5 (5.0-9.0) Ur Specific [place] 1.016 (1.001-1.035) Urine Protein Negative (Negative) mg/dL Urine Glucose (UA) 1+ H (Negative) mg/dL Assessment and Plan Assessment and plan (1) Acute UTI: Code(s): N39.0 - Urinary tract infection, site not specified Status: Acute Assessment and Plan: * UA: Positive nitrates, 2+ leukocyte esterase, and 21-50 WBC, urine bacteria 4 + * UC obtained on 11/18 * Blood cultures to rule out bacteremia * No previous micro * started on Rocephin * WBC on admission = 14.0 * Monitor daily labs, continue IV antibiotics, monitor cultures (2) Generalized weakness: Code(s): R53.1 - Weakness Status: Acute Assessment and Plan: * Likely secondary to underlying infection, UTI * Gentle IVF rehydration * PT/OT eval (3) Type 2 diabetes mellitus with peripheral neuropathy: Code(s): E11.42 - Type 2 diabetes mellitus with diabetic polyneuropathy Status: Acute Assessment and Plan: * Hypoglycemia protocol * POC blood glucose ACHS * Home medication - metformin - hold * Correct regimen ordered - low dose TIDWM and HS * A1C 6.9% (08/22/24) (4) Essential hypertension: Code(s): I10 - Essential (primary) hypertension Status: Acute Assessment and Plan: * Patient's blood pressure was reviewed on 11/19 * Blood pressure remains well controlled. * Will continue current medications -lisinopril (5) Hyperlipidemia: Qualifiers: Hyperlipidemia type: mixed hyperlipidemia Qualified Code(s): E78.2 - Mixed hyperlipidemia Code(s): E78.5 - Hyperlipidemia, unspecified Status: Acute Assessment and Plan: * Continue rosuvastatin (6) BPH (benign prostatic hyperplasia): Qualifiers: Lower urinary tract symptom detail: weak urinary stream Lower urinary tract symptom presence: symptoms present Qualified Code(s): N40.1 - Benign prostatic hyperplasia with lower urinary tract symptoms; R39.12 - Poor urinary stream Code(s): N40.0 - Benign prostatic hyperplasia without lower urinary tract symptoms Status: Acute Assessment and Plan: * Continue tamsulosin and finasteride * Urology consult * Continue at home medications * Bladder scan * Inform if >250ml Plan DVT prophylaxis: Lovenox 40mg Code Status: DNR Quality VTE Prophylaxis VTE prophylaxis: pharmacologic ordered
[2024-11-19 07:48] LABS: Glucose Point of Care 197 mg/dl (65-105)
[2024-11-19 08:00] VITALS: BP 138/60; PULSE 68; RESP 18; TEMP 36.4; O2SAT 99
[2024-11-19 08:03] LABS: Basophils Percent Auto 0.2 % (0.2-1.2); Eosinophils Percent Auto 0.3 % (0-4.4); Hematocrit 35.2 % (42.0-52.0); Immature Granulocyte Absolute 0.08 K/mm3 (0.00-0.031); Immature Granulocyte Percent A 0.6 % (0-0.5); Lymphocytes Absolute Auto 0.69 K/mm3 (0.9-3.2); Mean Corpuscular HGB Conc 34.1 g/dl (32-36); Mean Corpuscular Hemoglobin 32.3 pg (26-34); Mean Corpuscular Volume 94.9 fl (80-100); Mean Platelet Volume 10.2 fl (7.4-10.4); Monocytes Absolute Auto 0.8 K/mm3 (0.1-0.6); Monocytes Percent Auto 5.5 % (2.6-8.5); Neutrophils Absolute Auto 12.3 K/mm3 (1.3-6.7); Neutrophils Percent Auto 88.4 % (45.5-73.1); Platelet Count Result 144 k/mm3 (150-375); Red Blood Count 3.71 M/mm3 (4.6-6.20); Red Cell Distribution Width 12.4 % (11.5-14.5); White Blood Count 13.9 K/mm3 (4.5-10.0)
[2024-11-19 08:51] LABS: Alanine Aminotransferase 16 U/L (6-50); Albumin Level 3.7 g/dL (3.5-5.1); Alkaline Phosphatase 38 U/L (38-126); Anion Gap 8 mmol/L (4-12); Aspartate Amino Transferase 18 U/L (17-59); Bilirubin,Total 0.9 mg/dL (0.2-1.3); Blood Urea Nitrogen 19 mg/dL (9-20); Calcium 9.3 mg/dL (8.4-10.2); Carbon Dioxide 24 mmol/L (22-30); Chloride 102 mmol/L (98-107); Estimated CRCL calculation 47 ml/min; Estimated Glomerular Filt Rate 54; Glucose 198 mg/dL (65-110); Potassium 4.2 mmol/L (3.4-5.0); Sodium 134 mmol/L (137-145); Total Protein 6.8 g/dL (6.3-8.2)
[2024-11-19] MEDS: lisinopriL 20 MG TABLET BY MOUTH (09:16)
[2024-11-19] MEDS: TAMSULOSIN HCL 0.4 MG CAPSULE BY MOUTH (09:16)
[2024-11-19] MEDS: PANTOPRAZOLE 40 MG TABLET PO (09:17)
[2024-11-19] MEDS: FLUoxetine HCL 20 MG CAPSULE BY MOUTH (09:17)
[2024-11-19] MEDS: ROSUVASTATIN 20 MG TABLET BY MOUTH (09:17)
[2024-11-19] MEDS: FINASTERIDE 5 MG TABLET PO (09:17)
[2024-11-19 11:51] LABS: Glucose Point of Care 181 mg/dl (65-105)
[2024-11-19 12:00] VITALS: BP 120/58; PULSE 68; RESP 18; TEMP 36.4; O2SAT 98
--- NOTE | 2024-11-19 12:22 | WPDURCON ---
Assessment and Plan Assessment and plan (1) Abnormal urinalysis: Code(s): R82.90 - Unspecified abnormal findings in urine Status: Acute Assessment and Plan: Abnormal on dipstick. Urine culture pending. Already on antibiotics. No recent changes in his baseline bladder behavior. No dysuria. This either represents infection or asymptomatic bacteriuria. If urine culture positive treat with 7 days of culture specific antibiotics (2) BPH loc w urin obs/LUTS: Code(s): N40.1 - Benign prostatic hyperplasia with lower urinary tract symptoms Status: Acute Assessment and Plan: On combination therapy for BPH. Will order bladder scan. Inform me if greater than 250 cc. outpatient urologic evaluation Urology Consult Note HPI Date Seen: 11/19/24 Requesting Physician: Katia Dooley DO Primary Care Provider: LUCIA De Leon Consult Narrative Narrative: Bertin Jeff is a 79 year old male seen at request of the hospitalist. He is present in his room with his who provides most of the history. He is currently in the hospital for dizziness and falls. He had a fall at home. His states this has become more and more probable last few years. She also endorses a history of urinary tract infection about once per year. He has a long history of slow urinary stream as well as urgency and frequency. There has been no recent change in his baseline urinary symptoms. He has no dysuria. Abnormal urinalysis was noted in the emergency room. He has been placed on broad-spectrum antibiotics. He has not had fevers. It is tough to tell if he is symptomatic for infection but it seems like not with the lack of dysuria. His urgency and frequency and slow stream is chronic in nature. He is on dual therapy with tamsulosin and finasteride. He has not seen a urologist Review of Systems Review of Systems: All systems reviewed & are unremarkable except as noted in HPI and below PMFSH Past Medical History Medical History COVID-19 virus infection Dysphagia Chest pain Chest pain Hospital discharge follow-up Sensation of feeling hot Acute UTI Basal cell carcinoma of nose Type 2 diabetes mellitus with peripheral neuropathy Diabetic peripheral neuropathy AK (actinic keratosis) Kidney stones Insomnia Cataracts, bilateral Maturing Essential hypertension BPH (benign prostatic hyperplasia) Chronic kidney disease, stage 3b Dr. Anders HIDALGO-19 (~07/2021) Colorectal cancer Surgery and Radiation 2004 Depression GERD (gastroesophageal reflux disease) Osteoarthritis Osteoporosis Renal carcinoma Tremors of nervous system Type 2 diabetes mellitus with other diabetic kidney complication Hemoglobin A1c 6 28 July 2022 Hyperlipidemia Surgical History Surgical History History of appendectomy Hx of cholecystectomy History of tonsillectomy Normal colonoscopy (07/2020) History of resection of rectum (2004) H/O hernia repair Family History Family History Mother Diabetes mellitus Hypertension Father Family history unknown Other Family history of arthritis Family history of malignant neoplasm Social History Social History Social History: He lives in [place] with his of 60 years. They have 3 children. He drinks a couple of glasses of wine a week. He is a former smoker he used to smoke up to 2 packs per day for approximately 30 years. He denies any illicit substance use. He used to work in sales. Code status: DNR/DNI Surrogate decision maker: Smoking packs per day: 1.5 Smoking cigarettes per day: 30.0 Years smoked: 33 Smoking pack-years: 49.50 Smoking status: Former smoker Tobacco type: cigarettes Second hand tobacco smoke exposure: No Smoking end date: 05/30/88 Alcohol intake: current Drinks per week: 1 Alcohol use details: wine occasionally Substance use: never Do You Feel Safe in your Home?: Yes Lack of Transportation: No Lack of Food: Never True Current Housing: I Have Housing Concerned About Future Housing: No Difficulty Paying Gas/Electric Bills: No Difficulty Paying for Meds: No Currently Unemployed: No Education: Decline to Answer Difficulty w/ Childcare or Family Care: No Living arrangements: with family Gender identity (if verbalized by the patient): Male Spiritual care concerns: No Meds Home Medications and Allergies Home Medications ?Medication ?Instructions ?Recorded ?Confirmed ?Type omeprazole 40 mg capsule,delayed See Rx Instructions .Route 06/26/24 11/19/24 Rx release .COMPLEX #90 caps rosuvastatin 20 mg tablet See Rx Instructions .Route 07/09/24 11/19/24 Rx .COMPLEX #90 tabs fluoxetine 20 mg capsule See Rx Instructions .Route 08/06/24 11/19/24 Rx .COMPLEX #90 caps mecobalamin (vitamin B12) 500 mcg 500 mcg PO DAILY 08/30/24 11/19/24 History chewable tablet finasteride 5 mg tablet 5 mg PO DAILY #90 tabs 10/30/24 11/19/24 Rx insulin glargine 100 unit/mL (3 16 unit (0.16 mL) subcut DAILY #15 10/30/24 11/19/24 Rx mL) subcutaneous pen (Lantus mL Solostar U-100 Insulin) lisinopril 20 mg tablet See Rx Instructions .Route 10/30/24 11/19/24 Rx .COMPLEX #90 tabs metformin 500 mg tablet,extended See Rx Instructions .Route 10/30/24 11/19/24 Rx release 24 hr .COMPLEX #90 tabs tamsulosin 0.4 mg capsule See Rx Instructions .Route 10/30/24 11/19/24 Rx .COMPLEX #90 caps Allergies Allergy/AdvReac Type Severity Reaction Status Date / Time No Known Allergies Allergy Verified 11/19/24 01:10 Vital Signs Vital Signs - 24 hr 11/18/24 20:42 11/18/24 20:53 11/18/24 22:39 Temperature 100.2 F H Pulse Rate 79 85 66 Respiratory Rate 19 16 Blood Pressure 123/63 119/61 Pulse Oximetry 97 97 Oxygen Delivery Room Air 11/18/24 23:55 11/19/24 04:17 11/19/24 04:56 Temperature Pulse Rate 63 69 98 Respiratory Rate 16 14 16 Blood Pressure 117/66 116/81 131/66 Pulse Oximetry 96 98 100 Oxygen Delivery 11/19/24 06:00 11/19/24 08:00 11/19/24 12:00 Temperature 97.6 F 97.6 F 97.6 F Pulse Rate 64 68 68 Respiratory Rate 18 18 18 Blood Pressure 125/50 L 138/60 120/58 L Pulse Oximetry 99 99 98 Oxygen Delivery Exam Const: General: cooperative, healthy appearing, comfortable and no acute distress Nutritional Appearance: average body habitus Orientation/consciousness: patient oriented x3 HENMT: Head: normal to inspection Eyes: General: appearance normal, both eyes and all related structures Neck: Neck: normal visual inspection Resp: Effort & Inspection: normal respiratory effort and no cough Skin: General skin exam: normal color and elasticity normal Neuro: General: patient oriented x3 and moves all extremities Psych: Appearance: grossly normal Results Labs 11/19/24 07:39 11/19/24 07:39 Labs: Short CBC 11/18/24 11/19/24 Range/Units 22:13 07:39 WBC 14.0 H 13.9 H (4.5-10.0) K/mm3 Hgb 12.1 L 12.0 L (14.0-18.0) g/dL Hct 35.4 L 35.2 L (42.0-52.0) % Plt Count 147 L 144 L (150-375) k/mm3 BMP 11/18/24 11/19/24 22:13 07:39 Sodium 131 L 134 L Potassium 4.2 4.2 Chloride 102 102 Carbon Dioxide 21 L 24 BUN 20 19 Creatinine 1.22 1.27 Glucose 232 H 198 H Calcium 9.3 9.3 Cardiac Enzymes 11/18/24 Range/Units 22:13 Troponin I < 0.012 (0.000-0.034) ng/mL Liver Function 11/18/24 11/19/24 Range/Units 22:13 07:39 Total Bilirubin 0.8 0.9 (0.2-1.3) mg/dL AST 22 18 (17-59) U/L ALT 18 16 (6-50) U/L Alkaline Phosphatase 41 38 (38-126) U/L Albumin 3.9 3.7 (3.5-5.1) g/dL Urine 11/18/24 Range/Units 23:36 Urine Color Yellow (Yellow) Urine Appearance Clear (Clear) Urine pH 5.5 (5.0-9.0) Ur Specific [place] 1.016 (1.001-1.035) Urine Protein Negative (Negative) mg/dL Urine Glucose (UA) 1+ H (Negative) mg/dL
[2024-11-19 16:28] LABS: Glucose Point of Care 270 mg/dl (65-105)
[2024-11-19] MEDS: INSULIN ASPART (*BKC) 100 UNITS/ML SUB-Q ×2 (16:59→20:44)
[2024-11-19 20:00] VITALS: BP 124/58; PULSE 64; RESP 18; TEMP 36.2; O2SAT 100
[2024-11-19 21:05] LABS: Glucose Point of Care 221 mg/dl (65-105)
[2024-11-20 06:00] VITALS: BP 122/61; PULSE 66; RESP 18; TEMP 36.6; O2SAT 98
[2024-11-20 08:01] LABS: Glucose Point of Care 143 mg/dl (65-105)
[2024-11-20 08:22] LABS: Basophils Percent Auto 0.5 % (0.2-1.2); Eosinophils Absolute Auto 0.3 K/mm3 (0-0.3); Eosinophils Percent Auto 3.6 % (0-4.4); Hematocrit 32.5 % (42.0-52.0); Hemoglobin 11.1 g/dL (14.0-18.0); Immature Granulocyte Absolute 0.05 K/mm3 (0.00-0.031); Immature Granulocyte Percent A 0.6 % (0-0.5); Immature Platelet Fraction Pct 3.1 % (0.9-11.2); Lymphocytes Absolute Auto 0.77 K/mm3 (0.9-3.2); Mean Corpuscular HGB Conc 34.2 g/dl (32-36); Mean Corpuscular Hemoglobin 32.4 pg (26-34); Mean Corpuscular Volume 94.8 fl (80-100); Mean Platelet Volume 10.5 fl (7.4-10.4); Monocytes Absolute Auto 0.4 K/mm3 (0.1-0.6); Neutrophils Absolute Auto 6.9 K/mm3 (1.3-6.7); Neutrophils Percent Auto 81.3 % (45.5-73.1); Platelet Count Result 137 k/mm3 (150-375); Red Blood Count 3.43 M/mm3 (4.6-6.20); Red Cell Distribution Width 12.4 % (11.5-14.5); White Blood Count 8.5 K/mm3 (4.5-10.0)
--- NOTE | 2024-11-20 08:29 | P.PNIM_ITS ---
Progress Note: A&P Assessment and Plan (1) Acute UTI: Code(s): N39.0 - Urinary tract infection, site not specified Status: Acute Assessment and Plan: * UA: Positive nitrates, 2+ leukocyte esterase, and 21-50 WBC, urine bacteria 4+ * UC obtained on 11/18 * Blood cultures to rule out bacteremia * No previous micro * started on Rocephin * WBC on admission = 14.0 * Monitor daily labs, continue IV antibiotics, monitor cultures * 11/20, WBC 8.5 * Still has some increased urinary frequency, but denies any dysuria or hematuria (2) Bacteremia: Code(s): R78.81 - Bacteremia Status: Acute Assessment and Plan: * lactic acid: 0.9 * suspected source: UTI * blood cultures drawn on 11/18 - Gram + cocci cluster * Contaminate considered, will continue to monitor current cultures * UA: Positive nitrates, 2+ leukocyte esterase, and 21-50 WBC, urine bacteria 4+ * Urine culture: pending * Continue IV antibiotics - will add on Vanc and monitor BCs for future growth (3) Generalized weakness: Code(s): R53.1 - Weakness Status: Acute Assessment and Plan: * Likely secondary to underlying infection, UTI * Gentle IVF rehydration * PT/OT eval (4) Type 2 diabetes mellitus with peripheral neuropathy: Code(s): E11.42 - Type 2 diabetes mellitus with diabetic polyneuropathy Status: Acute Assessment and Plan: * Hypoglycemia protocol * POC blood glucose ACHS * Home medication - metformin - hold * Correct regimen ordered - low dose TIDWM and HS * A1C 6.9% (08/22/24) (5) Essential hypertension: Code(s): I10 - Essential (primary) hypertension Status: Acute Assessment and Plan: * Patient's blood pressure was reviewed on 11/19 * Blood pressure remains well controlled. * Will continue current medications -lisinopril (6) Hyperlipidemia: Qualifiers: Hyperlipidemia type: mixed hyperlipidemia Qualified Code(s): E78.2 - Mixed hyperlipidemia Code(s): E78.5 - Hyperlipidemia, unspecified Status: Acute Assessment and Plan: * Continue rosuvastatin (7) BPH (benign prostatic hyperplasia): Qualifiers: Lower urinary tract symptom detail: weak urinary stream Lower urinary tract symptom presence: symptoms present Qualified Code(s): N40.1 - Benign prostatic hyperplasia with lower urinary tract symptoms; R39.12 - Poor urinary stream Code(s): N40.0 - Benign prostatic hyperplasia without lower urinary tract symptoms Status: Acute Assessment and Plan: * Continue tamsulosin and finasteride * Urology consult * Continue at home medications * Bladder scan * Inform if >250ml Plan DVT prophylaxis: Lovenox 40mg Code Status: DNR Subjective Date/time seen: 11/20/24 08:29 Interval history: 79-year-old male with a past medical history of T2DM, HTN, hyperlipidemia, CKD stage 3b, GERD, and BPH who presents to the hospital with generalized weakness and increased urinary frequency for the past couple of weeks. 11/20/2024 Patient sitting comfortably in bed at time of examination. Denies any chest pain, shortness a breath, nausea/vomiting, or abdominal pain. Denies any dysuria or hematuria so far, still endorses some urinary frequency but otherwise has no complaints. One blood culture positive for gram-positive cocci cluster, could be contaminant but will add vancomycin for suspected Staph coverage. Continue to monitor blood cultures the next few days for any further growth. Continue treating UTI with Rocephin. Review of Systems Review of Systems: All systems reviewed & are unremarkable except as noted in HPI and below Exam Narrative: Gen - well appearing male in no acute respiratory distress who is nontoxic- appearing lying semi recumbent in bed HEENT - normocephalic. Pupils equal round and reactive. Extraocular motions intact. Sclera clear and anicteric. Nares patent Moist mucous membranes. Neck - neck was supple. No dominant adenopathy, thyromegaly or masses. 2+ carotid upstrokes without bruits. Chest - lungs are clear to auscultation bilaterally. No wheezes or crackles. CV - heart was regular rate and rhythm. S1-S2. No murmurs gallops or rubs. Abd - abdomen was soft. Nontender. Nondistended. Positive bowel sounds. No organomegaly or masses. Ext - no clubbing, cyanosis or edema. 2+ DP pulses bilaterally. Neuro - patient is alert and oriented x4. Strength is 5/5 in both upper and lower extremities. Cranial nerves 2-12 are intact. Speech is clear. Psych - normal mood and affect. Patient is pleasant and cooperative. Skin - warm and dry. No rashes noted. Objective Data Vital Signs Vital Signs: Vital Signs - 24 hr 11/19/24 11:15 11/19/24 12:00 11/19/24 12:38 Temperature 97.6 F Pulse Rate 68 Respiratory Rate 18 Blood Pressure 120/58 L Pulse Oximetry 98 Oxygen Delivery Room Air Room Air 11/19/24 20:00 11/19/24 20:00 11/20/24 06:00 Temperature 97.2 F L 97.9 F Pulse Rate 64 66 Respiratory Rate 18 18 Blood Pressure 124/58 L 122/61 Pulse Oximetry 100 98 Oxygen Delivery Room Air Intake/Output Intake/Output: Intake & Output 11/17/24 11/18/24 11/19/24 11/20/24 23:59 23:59 23:59 23:59 Intake Total 530 550 Output Total 400 Balance -400 530 550 Meds/Results Medications: Active Medications Generic Name Dose Route Start Last Admin Trade Name Freq PRN Reason Stop Dose Admin Acetaminophen 650 mg 11/19/24 02:42 11/19/24 05:41 Acetaminophen 325 Mg Tablet PO 650 mg Q4H PRN Administration Mild Pain (1-3) or Fever Dextrose 12.5 gm 11/19/24 07:59 Dextrose 50% 25 Gm/50 Ml Syringe IV PUSH PRN PRN Hypoglycemia Protocol Enoxaparin Sodium 40 mg 11/20/24 09:00 Enoxaparin 40 Mg/0.4 Ml Syringe SUB-Q DAILY TERRIE Finasteride 5 mg 11/19/24 09:00 11/19/24 09:17 Finasteride 5 Mg Tablet PO 5 mg DAILY TERRIE Administration Fluoxetine HCl 20 mg 11/19/24 09:00 11/19/24 09:17 Fluoxetine Hcl 20 Mg Capsule BY MOUTH 20 mg DAILY TERRIE Administration Glucagon 1 mg 11/19/24 07:59 Glucagon For Inj 1 Mg Vial IM PRN PRN Hypoglycemia Protocol Glucose 15 gm 11/19/24 07:59 Glucose Oral Gel 15 Gm Of Glucse In 37.5 Gm Tube PO PRN PRN Hypoglycemia Protocol Ceftriaxone Sodium 1 gm in 50 mls @ 100 mls/hr 11/19/24 23:00 11/19/24 23:14 Rocephin 1 Gm/Ns 50 Ml IVPB 100 mls/hr Q24H TERRIE Administration Dextrose 1,000 mls @ 100 mls/hr 11/19/24 07:59 Dextrose 5% 1,000 Ml IVPB PRN PRN Hypoglycemia Protocol Insulin Aspart 2 - 5 units 11/19/24 08:00 11/19/24 16:59 Insulin Aspart (*Bkc) 100 Units/Ml SUB-Q 3 units TIDWM TERRIE Administration Protocol Insulin Aspart 1 - 2 units 11/19/24 21:00 11/19/24 20:44 Insulin Aspart (*Bkc) 100 Units/Ml SUB-Q 1 units HS TERRIE Administration Protocol Lisinopril 20 mg 11/19/24 09:00 11/19/24 09:16 Lisinopril 20 Mg Tablet BY MOUTH 20 mg DAILY TER[facility]E Administration Pantoprazole Sodium 40 mg 11/19/24 09:00 11/19/24 09:17 Pantoprazole 40 Mg Tablet PO 40 mg QAM TERRIE Administration Rosuvastatin Calcium 20 mg 11/19/24 09:00 11/19/24 09:17 Rosuvastatin 20 Mg Tablet BY MOUTH 20 mg DAILY [facility]E Administration Tamsulosin HCl 0.4 mg 11/19/24 09:00 11/19/24 09:16 Tamsulosin Hcl 0.4 Mg Capsule BY MOUTH 0.4 mg DAILY TERRIE Administration Radiology Results: ITS Impressions Chest X-Ray 11/18/24 21:22 IMPRESSION: No acute cardiopulmonary pathology. Cardiomegaly. Abdomen/Pelvis CT 11/19/24 05:23 Impression: 2 cm irregular semisolid nodule or consolidation the right lower lobe. This is suspicious for focal pneumonitis. Follow-up exam in 1-3 months recommended to reassess. Probable mild wall thickening along the left side of the urinary bladder. This could reflect cystitis. Neoplasm felt to be less likely, though difficult to completely exclude. Correlate clinically. Consider cystoscopy as indicated. Labs Labs: Laboratory Results - last 24 hr 11/19/24 11/19/24 11/19/24 07:39 11:49 16:20 WBC RBC Hgb Hct MCV MCH MCHC RDW Plt Count MPV Immature Gran % (Auto) Neut % (Auto) Lymph % (Auto) [place] % (Auto) Eos % (Auto) Baso % (Auto) Lymph # (Auto) [place] # (Auto) Eos # (Auto) Baso # (Auto) Abs Immat Gran (auto) Absolute Neuts (auto) Absolute Nucleated RBC Nucleated RBC % % Immature Plt Fraction Sodium 134 L Potassium 4.2 Chloride 102 Carbon Dioxide 24 Anion Gap 8 BUN 19 Creatinine 1.27 Estim Creat Clear Calc 47 Estimated GFR 54 L Glucose 198 H POC Capillary Glucose 181 H 270 H Calcium 9.3 Total Bilirubin 0.9 AST 18 ALT 16 Alkaline Phosphatase 38 Total Protein 6.8 Albumin 3.7 11/19/24 11/20/24 11/20/24 20:14 07:55 07:57 WBC 8.5 RBC 3.43 L Hgb 11.1 L Hct 32.5 L MCV 94.8 MCH 32.4 MCHC 34.2 RDW 12.4 Plt Count 137 L MPV 10.5 H Immature Gran % (Auto) 0.6 H Neut % (Auto) 81.3 H Lymph % (Auto) 9.0 L [place] % (Auto) 5.0 Eos % (Auto) 3.6 Baso % (Auto) 0.5 Lymph # (Auto) 0.77 L [place] # (Auto) 0.4 Eos # (Auto) 0.3 Baso # (Auto) 0.0 Abs Immat Gran (auto) 0.05 H Absolute Neuts (auto) 6.9 H Absolute Nucleated RBC 0.000 Nucleated RBC % 0.0 % Immature Plt Fraction 3.1 Sodium Potassium Chloride Carbon Dioxide Anion Gap BUN Creatinine Estim Creat Clear Calc Estimated GFR Glucose POC Capillary Glucose 221 H 143 H Calcium Total Bilirubin AST ALT Alkaline Phosphatase Total Protein Albumin Quality VTE Prophylaxis VTE prophylaxis: pharmacologic ordered
--- NOTE | 2024-11-20 08:39 | WPDUROPN2 ---
Progress Note: A&P Assessment and Plan (1) Abnormal urinalysis: Code(s): R82.90 - Unspecified abnormal findings in urine Status: Acute Assessment and Plan: Urine culture is pending. Continue IV ceftriaxone while awaiting culture results. If urine culture positive treat with 7 days of culture specific antibiotics (2) BPH loc w urin obs/LUTS: Code(s): N40.1 - Benign prostatic hyperplasia with lower urinary tract symptoms Status: Acute Assessment and Plan: On combination therapy for BPH. Continue tamsulosin and finasteride. Will arrange outpatient follow-up for further evaluation. Subjective Subjective Date/Time Seen: 11/20/24 08:39 Interval history: Bertin is feeling well today. He complains of fatigue and had difficulty sleeping last night. He denies dysuria or hematuria. He does report urinary frequency. His appetite is good. He denies nausea, vomiting, fever, or chills. Review of Systems Review of Systems: All systems reviewed & are unremarkable except as noted in HPI and below Exam Narrative: General: Awake, alert, comfortable, no acute distress HEENT: Normocephalic, atraumatic, sclerae anicteric Respiratory: Normal respiratory effort, no accessory muscle use Skin: Normal coloration, warm and dry Neurologic: No focal neuro deficits noted Psychiatric: Appropriate mood and affect, judgment and insight intact Objective Data Vital Signs Vital Signs: Vital Signs - 24 hr 11/19/24 11:15 11/19/24 12:00 11/19/24 12:38 Temperature 97.6 F Pulse Rate 68 Respiratory Rate 18 Blood Pressure 120/58 L Pulse Oximetry 98 Oxygen Delivery Room Air Room Air 11/19/24 20:00 11/19/24 20:00 11/20/24 06:00 Temperature 97.2 F L 97.9 F Pulse Rate 64 66 Respiratory Rate 18 18 Blood Pressure 124/58 L 122/61 Pulse Oximetry 100 98 Oxygen Delivery Room Air Intake/Output Intake/Output: Intake & Output 11/17/24 11/18/24 11/19/24 11/20/24 23:59 23:59 23:59 23:59 Intake Total 530 550 Output Total 400 Balance -400 530 550 Meds/Results Medications: Active Medications Generic Name Dose Route Start Last Admin Trade Name Freq PRN Reason Stop Dose Admin Acetaminophen 650 mg 11/19/24 02:42 11/19/24 05:41 Acetaminophen 325 Mg Tablet PO 650 mg Q4H PRN Administration Mild Pain (1-3) or Fever Dextrose 12.5 gm 11/19/24 07:59 Dextrose 50% 25 Gm/50 Ml Syringe IV PUSH PRN PRN Hypoglycemia Protocol Enoxaparin Sodium 40 mg 11/20/24 09:00 Enoxaparin 40 Mg/0.4 Ml Syringe SUB-Q DAILY TERRIE Finasteride 5 mg 11/19/24 09:00 11/19/24 09:17 Finasteride 5 Mg Tablet PO 5 mg DAILY TERRIE Administration Fluoxetine HCl 20 mg 11/19/24 09:00 11/19/24 09:17 Fluoxetine Hcl 20 Mg Capsule BY MOUTH 20 mg DAILY TER[facility]E Administration Glucagon 1 mg 11/19/24 07:59 Glucagon For Inj 1 Mg Vial IM PRN PRN Hypoglycemia Protocol Glucose 15 gm 11/19/24 07:59 Glucose Oral Gel 15 Gm Of Glucse In 37.5 Gm Tube PO PRN PRN Hypoglycemia Protocol Ceftriaxone Sodium 1 gm in 50 mls @ 100 mls/hr 11/19/24 23:00 11/19/24 23:14 Rocephin 1 Gm/Ns 50 Ml IVPB 100 mls/hr Q24H [facility] Administration Dextrose 1,000 mls @ 100 mls/hr 11/19/24 07:59 Dextrose 5% 1,000 Ml IVPB PRN PRN Hypoglycemia Protocol Insulin Aspart 2 - 5 units 11/19/24 08:00 11/19/24 16:59 Insulin Aspart (*Bkc) 100 Units/Ml SUB-Q 3 units TIDWM TERRIE Administration Protocol Insulin Aspart 1 - 2 units 11/19/24 21:00 11/19/24 20:44 Insulin Aspart (*Bkc) 100 Units/Ml SUB-Q 1 units HS TERRIE Administration Protocol Lisinopril 20 mg 11/19/24 09:00 11/19/24 09:16 Lisinopril 20 Mg Tablet BY MOUTH 20 mg DAILY TERRIE Administration Pantoprazole Sodium 40 mg 11/19/24 09:00 11/19/24 09:17 Pantoprazole 40 Mg Tablet PO 40 mg QAM TER[facility]E Administration Rosuvastatin Calcium 20 mg 11/19/24 09:00 11/19/24 09:17 Rosuvastatin 20 Mg Tablet BY MOUTH 20 mg DAILY TERRIE Administration Tamsulosin HCl 0.4 mg 11/19/24 09:00 11/19/24 09:16 Tamsulosin Hcl 0.4 Mg Capsule BY MOUTH 0.4 mg DAILY [facility] Administration Vancomycin HCl 1 each 11/20/24 08:40 Vancomycin Pharmacist To Dose IVPB PER PROTOCOL [facility] Radiology Results: ITS Impressions Chest X-Ray 11/18/24 21:22 IMPRESSION: No acute cardiopulmonary pathology. Cardiomegaly. Abdomen/Pelvis CT 11/19/24 05:23 Impression: 2 cm irregular semisolid nodule or consolidation the right lower lobe. This is suspicious for focal pneumonitis. Follow-up exam in 1-3 months recommended to reassess. Probable mild wall thickening along the left side of the urinary bladder. This could reflect cystitis. Neoplasm felt to be less likely, though difficult to completely exclude. Correlate clinically. Consider cystoscopy as indicated. Labs Labs: Laboratory Results - last 24 hr 11/19/24 11/19/24 11/19/24 07:39 11:49 16:20 WBC RBC Hgb Hct MCV MCH MCHC RDW Plt Count MPV Immature Gran % (Auto) Neut % (Auto) Lymph % (Auto) [place] % (Auto) Eos % (Auto) Baso % (Auto) Lymph # (Auto) [place] # (Auto) Eos # (Auto) Baso # (Auto) Abs Immat Gran (auto) Absolute Neuts (auto) Absolute Nucleated RBC Nucleated RBC % % Immature Plt Fraction Sodium 134 L Potassium 4.2 Chloride 102 Carbon Dioxide 24 Anion Gap 8 BUN 19 Creatinine 1.27 Estim Creat Clear Calc 47 Estimated GFR 54 L Glucose 198 H POC Capillary Glucose 181 H 270 H Calcium 9.3 Total Bilirubin 0.9 AST 18 ALT 16 Alkaline Phosphatase 38 Total Protein 6.8 Albumin 3.7 11/19/24 11/20/24 11/20/24 20:14 07:55 07:57 WBC 8.5 RBC 3.43 L Hgb 11.1 L Hct 32.5 L MCV 94.8 MCH 32.4 MCHC 34.2 RDW 12.4 Plt Count 137 L MPV 10.5 H Immature Gran % (Auto) 0.6 H Neut % (Auto) 81.3 H Lymph % (Auto) 9.0 L [place] % (Auto) 5.0 Eos % (Auto) 3.6 Baso % (Auto) 0.5 Lymph # (Auto) 0.77 L [place] # (Auto) 0.4 Eos # (Auto) 0.3 Baso # (Auto) 0.0 Abs Immat Gran (auto) 0.05 H Absolute Neuts (auto) 6.9 H Absolute Nucleated RBC 0.000 Nucleated RBC % 0.0 % Immature Plt Fraction 3.1 Sodium Potassium Chloride Carbon Dioxide Anion Gap BUN Creatinine Estim Creat Clear Calc Estimated GFR Glucose POC Capillary Glucose 221 H 143 H Calcium Total Bilirubin AST ALT Alkaline Phosphatase Total Protein Albumin
[2024-11-20 09:02] LABS: Alanine Aminotransferase 15 U/L (6-50); Albumin Level 3.6 g/dL (3.5-5.1); Alkaline Phosphatase 37 U/L (38-126); Anion Gap 7 mmol/L (4-12); Aspartate Amino Transferase 19 U/L (17-59); Bilirubin,Total 0.6 mg/dL (0.2-1.3); Blood Urea Nitrogen 19 mg/dL (9-20); Calcium 9.3 mg/dL (8.4-10.2); Carbon Dioxide 23 mmol/L (22-30); Chloride 105 mmol/L (98-107); Estimated CRCL calculation 46 ml/min; Estimated Glomerular Filt Rate 53; Glucose 152 mg/dL (65-110); Potassium 3.8 mmol/L (3.4-5.0); Sodium 135 mmol/L (137-145); Total Protein 6.8 g/dL (6.3-8.2)
[2024-11-20 09:15] VITALS: BP 110/50; PULSE 63; RESP 18; O2SAT 98
[2024-11-20] MEDS: FINASTERIDE 5 MG TABLET PO (09:17)
[2024-11-20] MEDS: TAMSULOSIN HCL 0.4 MG CAPSULE BY MOUTH (09:17)
[2024-11-20] MEDS: FLUoxetine HCL 20 MG CAPSULE BY MOUTH (09:17)
[2024-11-20] MEDS: PANTOPRAZOLE 40 MG TABLET PO (09:17)
[2024-11-20] MEDS: lisinopriL 20 MG TABLET BY MOUTH (09:17)
[2024-11-20] MEDS: ROSUVASTATIN 20 MG TABLET BY MOUTH (09:17)
[2024-11-20] MEDS: VANCOMYCIN 1,250 MG/NS 250 ML 1,250 MG/250 ML BAG 166.67 MG IVPB ×2 (09:18→11:02)
[2024-11-20] MEDS: ENOXAPARIN 40 MG/0.4 ML SYRINGE SUB-Q (09:18)
[2024-11-20 12:08] LABS: Glucose Point of Care 199 mg/dl (65-105)
[2024-11-20 14:00] VITALS: BP 124/53; PULSE 70; RESP 18; TEMP 35.7; O2SAT 99
[2024-11-20] MEDS: ACETAMINOPHEN 325 MG TABLET 650 MG PO ×2 (15:46→22:20)
[2024-11-20] MEDS: INSULIN ASPART (*BKC) 100 UNITS/ML SUB-Q ×2 (17:00→21:11)
[2024-11-20 17:01] LABS: Glucose Point of Care 233 mg/dl (65-105)
[2024-11-20 20:00] VITALS: BP 111/58; PULSE 77; RESP 18; TEMP 36.7; O2SAT 97
[2024-11-20 21:14] LABS: Glucose Point of Care 269 mg/dl (65-105)
[2024-11-21] VITALS (7 sets, daily range): BP systolic 105–121; BP diastolic 48–58; PULSE 64–76; RESP 16–20; TEMP 36.3–36.5; O2SAT 94–99
[2024-11-21 06:42] LABS: Basophils Percent Auto 0.2 % (0.2-1.2); Eosinophils Absolute Auto 0.4 K/mm3 (0-0.3); Eosinophils Percent Auto 6.8 % (0-4.4); Hematocrit 36.5 % (42.0-52.0); Hemoglobin 12.4 g/dL (14.0-18.0); Immature Granulocyte Absolute 0.03 K/mm3 (0.00-0.031); Immature Granulocyte Percent A 0.5 % (0-0.5); Lymphocytes Absolute Auto 0.29 K/mm3 (0.9-3.2); Lymphocytes Percent Auto 4.9 % (18.3-44.2); Mean Corpuscular Hemoglobin 32.6 pg (26-34); Mean Corpuscular Volume 96.1 fl (80-100); Mean Platelet Volume 10.4 fl (7.4-10.4); Monocytes Absolute Auto 0.2 K/mm3 (0.1-0.6); Monocytes Percent Auto 4.1 % (2.6-8.5); Neutrophils Absolute Auto 4.9 K/mm3 (1.3-6.7); Neutrophils Percent Auto 83.5 % (45.5-73.1); Platelet Count Result 147 k/mm3 (150-375); Red Cell Distribution Width 12.5 % (11.5-14.5); White Blood Count 5.9 K/mm3 (4.5-10.0)
[2024-11-21 07:12] LABS: Alanine Aminotransferase 23 U/L (6-50); Albumin Level 3.5 g/dL (3.5-5.1); Alkaline Phosphatase 39 U/L (38-126); Anion Gap 8 mmol/L (4-12); Aspartate Amino Transferase 26 U/L (17-59); Bilirubin,Total 0.5 mg/dL (0.2-1.3); Blood Urea Nitrogen 21 mg/dL (9-20); Carbon Dioxide 22 mmol/L (22-30); Chloride 104 mmol/L (98-107); Estimated CRCL calculation 37 ml/min; Estimated Glomerular Filt Rate 40; Glucose 197 mg/dL (65-110); Potassium 3.9 mmol/L (3.4-5.0); Sodium 134 mmol/L (137-145); Total Protein 6.5 g/dL (6.3-8.2)
[2024-11-21 07:59] LABS: Glucose Point of Care 191 mg/dl (65-105)
[2024-11-21] MEDS: FINASTERIDE 5 MG TABLET PO (09:08)
[2024-11-21] MEDS: FLUoxetine HCL 20 MG CAPSULE BY MOUTH (09:08)
[2024-11-21] MEDS: ROSUVASTATIN 20 MG TABLET BY MOUTH (09:09)
[2024-11-21] MEDS: TAMSULOSIN HCL 0.4 MG CAPSULE BY MOUTH (09:09)
[2024-11-21] MEDS: ENOXAPARIN 40 MG/0.4 ML SYRINGE SUB-Q (09:09)
[2024-11-21] MEDS: lisinopriL 20 MG TABLET BY MOUTH (09:09)
[2024-11-21] MEDS: PANTOPRAZOLE 40 MG TABLET PO (09:09)
[2024-11-21 09:18] LABS: Vancomycin Trough 12.3 ug/mL (10.0-20.0)
[2024-11-21] MEDS: VANCOMYCIN 1,500 MG/NS 500 ML 1,500 MG/500 ML BAG 250 MG IVPB (09:56)
--- NOTE | 2024-11-21 10:27 | P.PNIM_ITS ---
Progress Note: A&P Assessment and Plan (1) Acute UTI: Code(s): N39.0 - Urinary tract infection, site not specified Status: Acute Assessment and Plan: * UA: Positive nitrates, 2+ leukocyte esterase, and 21-50 WBC, urine bacteria 4+ * UC obtained on 11/18 * Blood cultures to rule out bacteremia * No previous micro * started on Rocephin - switched to Keflex on 11/21 * WBC on admission = 14.0 * Monitor daily labs, continue IV antibiotics, monitor cultures * 11/21, WBC 5.9 * Still has some increased urinary frequency, but denies any dysuria or hematuria (2) Bacteremia: Code(s): R78.81 - Bacteremia Status: Acute Assessment and Plan: * lactic acid: 0.9 * suspected source: UTI * blood cultures drawn on 11/18 - Gram + cocci cluster * Contaminate considered, will continue to monitor current cultures * UA: Positive nitrates, 2+ leukocyte esterase, and 21-50 WBC, urine bacteria 4+ * Urine culture: - Ecoli, susceptibility pending * Continue IV antibiotics - will add on Vanc and monitor BCs for future growth * Repeat BC 11/21 (3) OSMAN (acute kidney injury): Code(s): N17.9 - Acute kidney failure, unspecified Status: Acute Assessment and Plan: * In ED: Cr 1.22, BUN 20 * On 11/21, Cr 1.66 , GFR: 40 , BUN:21 * IV Fluids: NS 100ml/hr * Trend renal function * Trend electrolytes, correct as needed (4) Generalized weakness: Code(s): R53.1 - Weakness Status: Acute Assessment and Plan: * Likely secondary to underlying infection, UTI * Gentle IVF rehydration * PT/OT eval * Endorses feeling much better, independent ambulation with cane (5) Type 2 diabetes mellitus with peripheral neuropathy: Code(s): E11.42 - Type 2 diabetes mellitus with diabetic polyneuropathy Status: Acute Assessment and Plan: * Hypoglycemia protocol * POC blood glucose ACHS * Home medication - metformin - hold * Correct regimen ordered - low dose TIDWM and HS * A1C 6.9% (08/22/24) (6) Essential hypertension: Code(s): I10 - Essential (primary) hypertension Status: Acute Assessment and Plan: * Patient's blood pressure was reviewed on 11/19 * Blood pressure remains well controlled. * Will continue current medications -lisinopril (7) Hyperlipidemia: Qualifiers: Hyperlipidemia type: mixed hyperlipidemia Qualified Code(s): E78.2 - Mixed hyperlipidemia Code(s): E78.5 - Hyperlipidemia, unspecified Status: Acute Assessment and Plan: * Continue rosuvastatin (8) BPH (benign prostatic hyperplasia): Qualifiers: Lower urinary tract symptom detail: weak urinary stream Lower urinary tract symptom presence: symptoms present Qualified Code(s): N40.1 - Benign prostatic hyperplasia with lower urinary tract symptoms; R39.12 - Poor urinary stream Code(s): N40.0 - Benign prostatic hyperplasia without lower urinary tract symptoms Status: Acute Assessment and Plan: * Continue tamsulosin and finasteride * Urology consult * Continue at home medications * Bladder scan * Inform if >250ml Plan DVT prophylaxis: Lovenox 40mg Code Status: DNR Subjective Date/time seen: 11/21/24 10:27 Interval history: 79-year-old male with a past medical history of T2DM, HTN, hyperlipidemia, CKD stage 3b, GERD, and BPH who presents to the hospital with generalized weakness and increased urinary frequency for the past couple of weeks. 11/21/2024 Patient sitting comfortably in bed at time of examination. Leukocytosis remains resolved. Urine culture showed growth of E coli, will transition from IV ceftriaxone to p.o. Keflex. Patient endorses significant improvement in symptoms as well as generalized weakness, states that he feels completely normal at this time. Will repeat blood cultures and monitor until preliminary result, likely can discharge once negative. Review of Systems Review of Systems: All systems reviewed & are unremarkable except as noted in HPI and below Exam Narrative: General: Awake, alert, comfortable, no acute distress HEENT: Normocephalic, atraumatic, sclerae anicteric Respiratory: Normal respiratory effort, no accessory muscle use Skin: Normal coloration, warm and dry Neurologic: No focal neuro deficits noted Psychiatric: Appropriate mood and affect, judgment and insight intact Objective Data Vital Signs Vital Signs: Vital Signs - 24 hr 11/20/24 14:00 11/20/24 20:00 11/21/24 00:00 Temperature 96.3 F L 98.1 F 97.4 F L Pulse Rate 70 77 66 Respiratory Rate 18 18 20 Blood Pressure 124/53 L 111/58 L Pulse Oximetry 99 97 94 11/21/24 04:00 11/21/24 08:37 11/21/24 09:08 Temperature 97.6 F 97.4 F L Pulse Rate 70 71 Respiratory Rate 16 16 Blood Pressure 121/51 L 105/50 L 112/48 L Pulse Oximetry 97 97 Intake/Output Intake/Output: Intake & Output 11/18/24 11/19/24 11/20/24 11/21/24 23:59 23:59 23:59 23:59 Intake Total 580 1610 830 Output Total 400 200 100 Balance -494 069 1567 730 Meds/Results Medications: Active Medications Generic Name Dose Route Start Last Admin Trade Name Freq PRN Reason Stop Dose Admin Acetaminophen 650 mg 11/19/24 02:42 11/20/24 22:20 Acetaminophen 325 Mg Tablet PO 650 mg Q4H PRN Administration Mild Pain (1-3) or Fever Dextrose 12.5 gm 11/19/24 07:59 Dextrose 50% 25 Gm/50 Ml Syringe IV PUSH PRN PRN Hypoglycemia Protocol Enoxaparin Sodium 40 mg 11/20/24 09:00 11/21/24 09:09 Enoxaparin 40 Mg/0.4 Ml Syringe SUB-Q 40 mg DAILY TERRIE Administration Finasteride 5 mg 11/19/24 09:00 11/21/24 09:08 Finasteride 5 Mg Tablet PO 5 mg DAILY TERRIE Administration Fluoxetine HCl 20 mg 11/19/24 09:00 11/21/24 09:08 Fluoxetine Hcl 20 Mg Capsule BY MOUTH 20 mg DAILY TERRIE Administration Glucagon 1 mg 11/19/24 07:59 Glucagon For Inj 1 Mg Vial IM PRN PRN Hypoglycemia Protocol Glucose 15 gm 11/19/24 07:59 Glucose Oral Gel 15 Gm Of Glucse In 37.5 Gm Tube PO PRN PRN Hypoglycemia Protocol Ceftriaxone Sodium 1 gm in 50 mls @ 100 mls/hr 11/19/24 23:00 11/20/24 22:19 Rocephin 1 Gm/Ns 50 Ml IVPB 100 mls/hr Q24H TERRIE Administration Dextrose 1,000 mls @ 100 mls/hr 11/19/24 07:59 Dextrose 5% 1,000 Ml IVPB PRN PRN Hypoglycemia Protocol Vancomycin HCl 1,500 mg in 500 mls @ 250 mls/hr 11/21/24 09:00 11/21/24 09:56 Vancomycin 1,500 Mg/Ns 500 Ml IVPB 250 mls/hr Q24H TERRIE Administration Insulin Aspart 2 - 5 units 11/19/24 08:00 11/21/24 09:01 Insulin Aspart (*Bkc) 100 Units/Ml SUB-Q Not Given TIDWM TERRIE Protocol Insulin Aspart 1 - 2 units 11/19/24 21:00 11/20/24 21:11 Insulin Aspart (*Bkc) 100 Units/Ml SUB-Q 1 units HS TERRIE Administration Protocol Lisinopril 20 mg 11/19/24 09:00 11/21/24 09:09 Lisinopril 20 Mg Tablet BY MOUTH 20 mg DAILY [facility] Administration Pantoprazole Sodium 40 mg 11/19/24 09:00 11/21/24 09:09 Pantoprazole 40 Mg Tablet PO 40 mg QAM TERRIE Administration Rosuvastatin Calcium 20 mg 11/19/24 09:00 11/21/24 09:09 Rosuvastatin 20 Mg Tablet BY MOUTH 20 mg DAILY TER[facility]E Administration Tamsulosin HCl 0.4 mg 11/19/24 09:00 11/21/24 09:09 Tamsulosin Hcl 0.4 Mg Capsule BY MOUTH 0.4 mg DAILY TERRIE Administration Radiology Results: ITS Impressions Chest X-Ray 11/18/24 21:22 IMPRESSION: No acute cardiopulmonary pathology. Cardiomegaly. Abdomen/Pelvis CT 11/19/24 05:23 Impression: 2 cm irregular semisolid nodule or consolidation the right lower lobe. This is suspicious for focal pneumonitis. Follow-up exam in 1-3 months recommended to reassess. Probable mild wall thickening along the left side of the urinary bladder. This could reflect cystitis. Neoplasm felt to be less likely, though difficult to completely exclude. Correlate clinically. Consider cystoscopy as indicated. Labs Labs: Laboratory Results - last 24 hr 11/20/24 11/20/24 11/20/24 12:04 16:57 21:09 WBC RBC Hgb Hct MCV MCH MCHC RDW Plt Count MPV Immature Gran % (Auto) Neut % (Auto) Lymph % (Auto) [place] % (Auto) Eos % (Auto) Baso % (Auto) Lymph # (Auto) [place] # (Auto) Eos # (Auto) Baso # (Auto) Abs Immat Gran (auto) Absolute Neuts (auto) Absolute Nucleated RBC Nucleated RBC % Sodium Potassium Chloride Carbon Dioxide Anion Gap BUN Creatinine Estim Creat Clear Calc Estimated GFR Glucose POC Capillary Glucose 199 H 233 H 269 H Calcium Total Bilirubin AST ALT Alkaline Phosphatase Total Protein Albumin Vancomycin Trough 11/21/24 11/21/24 11/21/24 06:32 07:53 08:18 WBC 5.9 RBC 3.80 L Hgb 12.4 L Hct 36.5 L MCV 96.1 MCH 32.6 MCHC 34.0 RDW 12.5 Plt Count 147 L MPV 10.4 Immature Gran % (Auto) 0.5 Neut % (Auto) 83.5 H Lymph % (Auto) 4.9 L [place] % (Auto) 4.1 Eos % (Auto) 6.8 H Baso % (Auto) 0.2 Lymph # (Auto) 0.29 L [place] # (Auto) 0.2 Eos # (Auto) 0.4 H Baso # (Auto) 0.0 Abs Immat Gran (auto) 0.03 Absolute Neuts (auto) 4.9 Absolute Nucleated RBC 0.000 Nucleated RBC % 0.0 Sodium 134 L Potassium 3.9 Chloride 104 Carbon Dioxide 22 Anion Gap 8 BUN 21 H Creatinine 1.66 H Estim Creat Clear Calc 37 Estimated GFR 40 L Glucose 197 H POC Capillary Glucose 191 H Calcium 9.0 Total Bilirubin 0.5 AST 26 ALT 23 Alkaline Phosphatase 39 Total Protein 6.5 Albumin 3.5 Vancomycin Trough 12.3 Quality VTE Prophylaxis VTE prophylaxis: pharmacologic ordered
[2024-11-21 11:27] LABS: Glucose Point of Care 282 mg/dl (65-105)
[2024-11-21] MEDS: SODIUM CHLORIDE 0.9% IV 1,000 ML 100 ML IV CONT ×2 (12:16→21:49)
[2024-11-21] MEDS: INSULIN ASPART (*BKC) 100 UNITS/ML SUB-Q ×3 (12:17→20:11)
[2024-11-21] MEDS: diphenhydrAMINE HCl CAP 25 MG CAPSULE PO ×2 (16:26→21:56)
--- NOTE | 2024-11-21 16:43 | P.PNUR_ITS ---
Progress Note: A&P Assessment and Plan (1) Abnormal urinalysis: Code(s): R82.90 - Unspecified abnormal findings in urine Status: Acute (2) BPH loc w urin obs/LUTS: Code(s): N40.1 - Benign prostatic hyperplasia with lower urinary tract symptoms Status: Acute Assessment and Plan: Plan -Urine culture showed ecoli. culture driven antibiotic therapy per primary service. Treat with 7 days of culture specific antibiotics. -Continue tamsulosin and finasteride. -Will arrange outpatient follow-up for further evaluation. reports she will be returning message to schedule outpatient appt. Subjective Subjective Date/Time Seen: 11/21/24 16:43 Interval history: 79-year-old male with a past medical history of T2DM, HTN, hyperlipidemia, CKD stage 3b, GERD, and BPH who presents to the hospital with generalized weakness and increased urinary frequency for the past couple of weeks. 11/21/2024 Patient sitting comfortably in the chair at time of examination. is present. Urine culture showed growth of E coli. Patient endorses significant improvement in symptoms and states he feels well at this time. Review of Systems Review of Systems: All systems reviewed & are unremarkable except as noted in HPI and below Exam Narrative: General: Awake, alert, comfortable, no acute distress HEENT: Normocephalic, atraumatic, sclerae anicteric Respiratory: Normal respiratory effort, no accessory muscle use Skin: Normal coloration, warm and dry Neurologic: No focal neuro deficits noted Psychiatric: Appropriate mood and affect, judgment and insight intact Objective Data Vital Signs Vital Signs: Vital Signs - 24 hr 11/20/24 20:00 11/21/24 00:00 11/21/24 04:00 Temperature 98.1 F 97.4 F L 97.6 F Pulse Rate 77 66 70 Respiratory Rate 18 20 16 Blood Pressure 111/58 L 121/51 L Pulse Oximetry 97 94 97 Oxygen Delivery 11/21/24 08:00 11/21/24 08:37 11/21/24 09:08 Temperature 97.4 F L Pulse Rate 71 Respiratory Rate 16 Blood Pressure 105/50 L 112/48 L Pulse Oximetry 97 Oxygen Delivery Room Air 11/21/24 12:00 Temperature 97.6 F Pulse Rate 76 Respiratory Rate 20 Blood Pressure 111/58 L Pulse Oximetry 99 Oxygen Delivery Intake/Output Intake/Output: Intake & Output 11/18/24 11/19/24 11/20/24 11/21/24 23:59 23:59 23:59 23:59 Intake Total 580 1610 1066 Output Total 400 200 100 Balance -005 719 3817 966 Meds/Results Medications: Active Medications Generic Name Dose Route Start Last Admin Trade Name Freq PRN Reason Stop Dose Admin Acetaminophen 650 mg 11/19/24 02:42 11/20/24 22:20 Acetaminophen 325 Mg Tablet PO 650 mg Q4H PRN Administration Mild Pain (1-3) or Fever Cephalexin HCl 500 mg 11/21/24 21:00 Cephalexin 500 Mg Capsule PO 11/25/24 09:01 Q12HR TERRIE Dextrose 12.5 gm 11/19/24 07:59 Dextrose 50% 25 Gm/50 Ml Syringe IV PUSH PRN PRN Hypoglycemia Protocol Diphenhydramine HCl 25 mg 11/21/24 16:12 11/21/24 16:26 Diphenhydramine Hcl Cap 25 Mg Capsule PO 25 mg Q6H PRN Administration Itching Enoxaparin Sodium 40 mg 11/20/24 09:00 11/21/24 09:09 Enoxaparin 40 Mg/0.4 Ml Syringe SUB-Q 40 mg DAILY TERRIE Administration Finasteride 5 mg 11/19/24 09:00 11/21/24 09:08 Finasteride 5 Mg Tablet PO 5 mg DAILY TERRIE Administration Fluoxetine HCl 20 mg 11/19/24 09:00 11/21/24 09:08 Fluoxetine Hcl 20 Mg Capsule BY MOUTH 20 mg DAILY TERRIE Administration Glucagon 1 mg 11/19/24 07:59 Glucagon For Inj 1 Mg Vial IM PRN PRN Hypoglycemia Protocol Glucose 15 gm 11/19/24 07:59 Glucose Oral Gel 15 Gm Of Glucse In 37.5 Gm Tube PO PRN PRN Hypoglycemia Protocol Dextrose 1,000 mls @ 100 mls/hr 11/19/24 07:59 Dextrose 5% 1,000 Ml IVPB PRN PRN Hypoglycemia Protocol Sodium Chloride 1,000 mls @ 100 mls/hr 11/21/24 10:30 11/21/24 12:16 Normal Saline Iv IV CONT 100 mls/hr .Q10H TERRIE Administration Insulin Aspart 2 - 5 units 11/19/24 08:00 11/21/24 12:17 Insulin Aspart (*Bkc) 100 Units/Ml SUB-Q 3 units TIDWM TERRIE Administration Protocol Insulin Aspart 1 - 2 units 11/19/24 21:00 11/20/24 21:11 Insulin Aspart (*Bkc) 100 Units/Ml SUB-Q 1 units HS TERRIE Administration Protocol Lisinopril 20 mg 11/19/24 09:00 11/21/24 09:09 Lisinopril 20 Mg Tablet BY MOUTH 20 mg DAILY TERRIE Administration Pantoprazole Sodium 40 mg 11/19/24 09:00 11/21/24 09:09 Pantoprazole 40 Mg Tablet PO 40 mg QAM TERRIE Administration Rosuvastatin Calcium 20 mg 11/19/24 09:00 11/21/24 09:09 Rosuvastatin 20 Mg Tablet BY MOUTH 20 mg DAILY TERRIE Administration Tamsulosin HCl 0.4 mg 11/19/24 09:00 11/21/24 09:09 Tamsulosin Hcl 0.4 Mg Capsule BY MOUTH 0.4 mg DAILY TERRIE Administration Radiology Results: ITS Impressions Chest X-Ray 11/18/24 21:22 IMPRESSION: No acute cardiopulmonary pathology. Cardiomegaly. Abdomen/Pelvis CT 11/19/24 05:23 Impression: 2 cm irregular semisolid nodule or consolidation the right lower lobe. This is suspicious for focal pneumonitis. Follow-up exam in 1-3 months recommended to reassess. Probable mild wall thickening along the left side of the urinary bladder. This could reflect cystitis. Neoplasm felt to be less likely, though difficult to completely exclude. Correlate clinically. Consider cystoscopy as indicated. Labs Labs: Laboratory Results - last 24 hr 11/20/24 11/20/24 11/21/24 16:57 21:09 06:32 WBC 5.9 RBC 3.80 L Hgb 12.4 L Hct 36.5 L MCV 96.1 MCH 32.6 MCHC 34.0 RDW 12.5 Plt Count 147 L MPV 10.4 Immature Gran % (Auto) 0.5 Neut % (Auto) 83.5 H Lymph % (Auto) 4.9 L [place] % (Auto) 4.1 Eos % (Auto) 6.8 H Baso % (Auto) 0.2 Lymph # (Auto) 0.29 L [place] # (Auto) 0.2 Eos # (Auto) 0.4 H Baso # (Auto) 0.0 Abs Immat Gran (auto) 0.03 Absolute Neuts (auto) 4.9 Absolute Nucleated RBC 0.000 Nucleated RBC % 0.0 Sodium 134 L Potassium 3.9 Chloride 104 Carbon Dioxide 22 Anion Gap 8 BUN 21 H Creatinine 1.66 H Estim Creat Clear Calc 37 Estimated GFR 40 L Glucose 197 H POC Capillary Glucose 233 H 269 H Calcium 9.0 Total Bilirubin 0.5 AST 26 ALT 23 Alkaline Phosphatase 39 Total Protein 6.5 Albumin 3.5 Vancomycin Trough 11/21/24 11/21/24 11/21/24 07:53 08:18 11:23 WBC RBC Hgb Hct MCV MCH MCHC RDW Plt Count MPV Immature Gran % (Auto) Neut % (Auto) Lymph % (Auto) [place] % (Auto) Eos % (Auto) Baso % (Auto) Lymph # (Auto) [place] # (Auto) Eos # (Auto) Baso # (Auto) Abs Immat Gran (auto) Absolute Neuts (auto) Absolute Nucleated RBC Nucleated RBC % Sodium Potassium Chloride Carbon Dioxide Anion Gap BUN Creatinine Estim Creat Clear Calc Estimated GFR Glucose POC Capillary Glucose 191 H 282 H Calcium Total Bilirubin AST ALT Alkaline Phosphatase Total Protein Albumin Vancomycin Trough 12.3
[2024-11-21 17:06] LABS: Glucose Point of Care 264 mg/dl (65-105)
[2024-11-21] MEDS: ACETAMINOPHEN 325 MG TABLET 650 MG PO (20:08)
[2024-11-21] MEDS: CEPHALEXIN 500 MG CAPSULE PO (20:10)
[2024-11-21 20:43] LABS: Glucose Point of Care 257 mg/dl (65-105)
[2024-11-22 05:25] VITALS: BP 114/67; PULSE 56; RESP 16; TEMP 36.3; O2SAT 99
[2024-11-22 07:38] LABS: Glucose Point of Care 139 mg/dl (65-105)
[2024-11-22 07:39] LABS: Basophils Percent Auto 0.5 % (0.2-1.2); Eosinophils Absolute Auto 0.6 K/mm3 (0-0.3); Eosinophils Percent Auto 14.5 % (0-4.4); Hematocrit 31.3 % (42.0-52.0); Hemoglobin 10.6 g/dL (14.0-18.0); Immature Granulocyte Absolute 0.02 K/mm3 (0.00-0.031); Immature Granulocyte Percent A 0.5 % (0-0.5); Lymphocytes Absolute Auto 0.66 K/mm3 (0.9-3.2); Lymphocytes Percent Auto 17.1 % (18.3-44.2); Mean Corpuscular HGB Conc 33.9 g/dl (32-36); Mean Corpuscular Hemoglobin 32.7 pg (26-34); Mean Corpuscular Volume 96.6 fl (80-100); Mean Platelet Volume 10.4 fl (7.4-10.4); Monocytes Absolute Auto 0.3 K/mm3 (0.1-0.6); Monocytes Percent Auto 8.5 % (2.6-8.5); Neutrophils Absolute Auto 2.3 K/mm3 (1.3-6.7); Neutrophils Percent Auto 58.9 % (45.5-73.1); Platelet Count Result 136 k/mm3 (150-375); Red Blood Count 3.24 M/mm3 (4.6-6.20); Red Cell Distribution Width 12.8 % (11.5-14.5); White Blood Count 3.9 K/mm3 (4.5-10.0)
[2024-11-22 07:52] LABS: Alanine Aminotransferase 19 U/L (6-50); Albumin Level 3.2 g/dL (3.5-5.1); Alkaline Phosphatase 34 U/L (38-126); Anion Gap 8 mmol/L (4-12); Aspartate Amino Transferase 22 U/L (17-59); Bilirubin,Total 0.3 mg/dL (0.2-1.3); Blood Urea Nitrogen 18 mg/dL (9-20); Calcium 8.6 mg/dL (8.4-10.2); Carbon Dioxide 19 mmol/L (22-30); Chloride 111 mmol/L (98-107); Estimated CRCL calculation 44 ml/min; Estimated Glomerular Filt Rate 49; Glucose 155 mg/dL (65-110); Potassium 3.9 mmol/L (3.4-5.0); Sodium 138 mmol/L (137-145); Total Protein 6.1 g/dL (6.3-8.2)
[2024-11-22] MEDS: CEPHALEXIN 500 MG CAPSULE PO (08:18)
[2024-11-22] MEDS: lisinopriL 20 MG TABLET BY MOUTH (08:18)
[2024-11-22] MEDS: PANTOPRAZOLE 40 MG TABLET PO (08:18)
[2024-11-22] MEDS: ROSUVASTATIN 20 MG TABLET BY MOUTH (08:18)
[2024-11-22] MEDS: FINASTERIDE 5 MG TABLET PO (08:18)
[2024-11-22] MEDS: SODIUM CHLORIDE 0.9% IV 1,000 ML 100 ML IV CONT (08:19)
[2024-11-22] MEDS: ENOXAPARIN 40 MG/0.4 ML SYRINGE SUB-Q (08:19)
[2024-11-22] MEDS: TAMSULOSIN HCL 0.4 MG CAPSULE BY MOUTH (08:19)
[2024-11-22] MEDS: FLUoxetine HCL 20 MG CAPSULE BY MOUTH (08:19)
--- NOTE | 2024-11-22 10:28 | P.PNIM_ITS ---
Progress Note: A&P Assessment and Plan (1) Acute UTI: Code(s): N39.0 - Urinary tract infection, site not specified Status: Acute Assessment and Plan: * UA: Positive nitrates, 2+ leukocyte esterase, and 21-50 WBC, urine bacteria 4+ * UC obtained on 11/18 * Blood cultures to rule out bacteremia * No previous micro * started on Rocephin - switched to Keflex on 11/21 * WBC on admission = 14.0 * Monitor daily labs, continue IV antibiotics, monitor cultures * 11/21, WBC 5.9 * Still has some increased urinary frequency, but denies any dysuria or hematuria (2) Bacteremia: Code(s): R78.81 - Bacteremia Status: Acute Assessment and Plan: * lactic acid: 0.9 * suspected source: UTI * blood cultures drawn on 11/18 - Gram + cocci cluster * Contaminate considered, will continue to monitor current cultures * UA: Positive nitrates, 2+ leukocyte esterase, and 21-50 WBC, urine bacteria 4+ * Urine culture: - Ecoli, susceptibility pending * Continue IV antibiotics - will add on Vanc and monitor BCs for future growth * Repeat BC 11/21 (3) OSMAN (acute kidney injury): Code(s): N17.9 - Acute kidney failure, unspecified Status: Acute Assessment and Plan: * In ED: Cr 1.22, BUN 20 * On 11/21, Cr 1.66 , GFR: 40 , BUN:21 * IV Fluids: NS 100ml/hr * Trend renal function * Trend electrolytes, correct as needed (4) Generalized weakness: Code(s): R53.1 - Weakness Status: Acute Assessment and Plan: * Likely secondary to underlying infection, UTI * Gentle IVF rehydration * PT/OT eval * Endorses feeling much better, independent ambulation with cane (5) Type 2 diabetes mellitus with peripheral neuropathy: Code(s): E11.42 - Type 2 diabetes mellitus with diabetic polyneuropathy Status: Acute Assessment and Plan: * Hypoglycemia protocol * POC blood glucose ACHS * Home medication - metformin - hold * Correct regimen ordered - low dose TIDWM and HS * A1C 6.9% (08/22/24) (6) Essential hypertension: Code(s): I10 - Essential (primary) hypertension Status: Acute Assessment and Plan: * Patient's blood pressure was reviewed on 11/19 * Blood pressure remains well controlled. * Will continue current medications -lisinopril (7) Hyperlipidemia: Qualifiers: Hyperlipidemia type: mixed hyperlipidemia Qualified Code(s): E78.2 - Mixed hyperlipidemia Code(s): E78.5 - Hyperlipidemia, unspecified Status: Acute Assessment and Plan: * Continue rosuvastatin (8) BPH (benign prostatic hyperplasia): Qualifiers: Lower urinary tract symptom detail: weak urinary stream Lower urinary tract symptom presence: symptoms present Qualified Code(s): N40.1 - Benign prostatic hyperplasia with lower urinary tract symptoms; R39.12 - Poor urinary stream Code(s): N40.0 - Benign prostatic hyperplasia without lower urinary tract symptoms Status: Acute Assessment and Plan: * Continue tamsulosin and finasteride * Urology consult * Continue at home medications * Bladder scan * Inform if >250ml Plan DVT prophylaxis: Lovenox 40mg Code Status: DNR Subjective Date/time seen: 11/22/24 10:28 Interval history: 79-year-old male with a past medical history of T2DM, HTN, hyperlipidemia, CKD stage 3b, GERD, and BPH who presents to the hospital with generalized weakness and increased urinary frequency for the past couple of weeks. 11/21/2024 Patient sitting comfortably in the chair at time of examination. is present. Urine culture showed growth of E coli. Patient endorses significant improvement in symptoms and states he feels well at this time. 11/22 assuming care Review of Systems Review of Systems: All systems reviewed & are unremarkable except as noted in HPI and below Exam Narrative: General: Awake, alert, comfortable, no acute distress HEENT: Normocephalic, atraumatic, sclerae anicteric Respiratory: Normal respiratory effort, no accessory muscle use Skin: Normal coloration, warm and dry Neurologic: No focal neuro deficits noted Psychiatric: Appropriate mood and affect, judgment and insight intact Objective Data Vital Signs Vital Signs: Vital Signs - 24 hr 11/21/24 12:00 11/21/24 16:00 11/21/24 21:32 Temperature 97.6 F 97.7 F 97.3 F L Pulse Rate 76 75 64 Respiratory Rate 20 18 18 Blood Pressure 111/58 L 118/50 L Pulse Oximetry 99 97 98 Oxygen Delivery 11/22/24 05:25 11/22/24 08:00 Temperature 97.4 F L Pulse Rate 56 L Respiratory Rate 16 Blood Pressure 114/67 Pulse Oximetry 99 Oxygen Delivery Room Air Intake/Output Intake/Output: Intake & Output 11/19/24 11/20/24 11/21/24 11/22/24 23:59 23:59 23:59 23:59 Intake Total 580 1610 2257 1660 Output Total 200 100 Balance 580 1410 2157 1660 Meds/Results Medications: Active Medications Generic Name Dose Route Start Last Admin Trade Name Freq PRN Reason Stop Dose Admin Acetaminophen 650 mg 11/19/24 02:42 11/21/24 20:08 Acetaminophen 325 Mg Tablet PO 650 mg Q4H PRN Administration Mild Pain (1-3) or Fever Cephalexin HCl 500 mg 11/21/24 21:00 11/22/24 08:18 Cephalexin 500 Mg Capsule PO 11/25/24 09:01 500 mg Q12HR TERRIE Administration Dextrose 12.5 gm 11/19/24 07:59 Dextrose 50% 25 Gm/50 Ml Syringe IV PUSH PRN PRN Hypoglycemia Protocol Diphenhydramine HCl 25 mg 11/21/24 16:12 11/21/24 21:56 Diphenhydramine Hcl Cap 25 Mg Capsule PO 25 mg Q6H PRN Administration Itching Enoxaparin Sodium 40 mg 11/20/24 09:00 11/22/24 08:19 Enoxaparin 40 Mg/0.4 Ml Syringe SUB-Q 40 mg DAILY TERRIE Administration Finasteride 5 mg 11/19/24 09:00 11/22/24 08:18 Finasteride 5 Mg Tablet PO 5 mg DAILY TERRIE Administration Fluoxetine HCl 20 mg 11/19/24 09:00 11/22/24 08:19 Fluoxetine Hcl 20 Mg Capsule BY MOUTH 20 mg DAILY TERRIE Administration Glucagon 1 mg 11/19/24 07:59 Glucagon For Inj 1 Mg Vial IM PRN PRN Hypoglycemia Protocol Glucose 15 gm 11/19/24 07:59 Glucose Oral Gel 15 Gm Of Glucse In 37.5 Gm Tube PO PRN PRN Hypoglycemia Protocol Dextrose 1,000 mls @ 100 mls/hr 11/19/24 07:59 Dextrose 5% 1,000 Ml IVPB PRN PRN Hypoglycemia Protocol Sodium Chloride 1,000 mls @ 100 mls/hr 11/21/24 10:30 11/22/24 08:19 Normal Saline Iv IV CONT 100 mls/hr .Q10H TERRIE Administration Insulin Aspart 2 - 5 units 11/19/24 08:00 11/22/24 07:55 Insulin Aspart (*Bkc) 100 Units/Ml SUB-Q Not Given TIDWM [facility] Protocol Insulin Aspart 1 - 2 units 11/19/24 21:00 11/21/24 20:11 Insulin Aspart (*Bkc) 100 Units/Ml SUB-Q 1 units HS TERRIE Administration Protocol Insulin Glargine 16 units 11/22/24 21:00 Insulin Glargine (*Bkc) 100 Units/Ml SUB-Q QHS [facility] Lisinopril 20 mg 11/19/24 09:00 11/22/24 08:18 Lisinopril 20 Mg Tablet BY MOUTH 20 mg DAILY TERRIE Administration Pantoprazole Sodium 40 mg 11/19/24 09:00 11/22/24 08:18 Pantoprazole 40 Mg Tablet PO 40 mg QAM TERRIE Administration Rosuvastatin Calcium 20 mg 11/19/24 09:00 11/22/24 08:18 Rosuvastatin 20 Mg Tablet BY MOUTH 20 mg DAILY TERRIE Administration Tamsulosin HCl 0.4 mg 11/19/24 09:00 11/22/24 08:19 Tamsulosin Hcl 0.4 Mg Capsule BY MOUTH 0.4 mg DAILY TERRIE Administration Radiology Results: ITS Impressions Chest X-Ray 11/18/24 21:22 IMPRESSION: No acute cardiopulmonary pathology. Cardiomegaly. Abdomen/Pelvis CT 11/19/24 05:23 Impression: 2 cm irregular semisolid nodule or consolidation the right lower lobe. This is suspicious for focal pneumonitis. Follow-up exam in 1-3 months recommended to reassess. Probable mild wall thickening along the left side of the urinary bladder. This could reflect cystitis. Neoplasm felt to be less likely, though difficult to completely exclude. Correlate clinically. Consider cystoscopy as indicated. Labs Labs: Laboratory Results - last 24 hr 11/21/24 11/21/24 11/21/24 11:23 16:30 20:01 WBC RBC Hgb Hct MCV MCH MCHC RDW Plt Count MPV Immature Gran % (Auto) Neut % (Auto) Lymph % (Auto) [place] % (Auto) Eos % (Auto) Baso % (Auto) Lymph # (Auto) [place] # (Auto) Eos # (Auto) Baso # (Auto) Abs Immat Gran (auto) Absolute Neuts (auto) Absolute Nucleated RBC Nucleated RBC % Sodium Potassium Chloride Carbon Dioxide Anion Gap BUN Creatinine Estim Creat Clear Calc Estimated GFR Glucose POC Capillary Glucose 282 H 264 H 257 H Calcium Total Bilirubin AST ALT Alkaline Phosphatase Total Protein Albumin 11/22/24 11/22/24 11/22/24 07:06 07:07 07:34 WBC 3.9 L RBC 3.24 L Hgb 10.6 L Hct 31.3 L MCV 96.6 MCH 32.7 MCHC 33.9 RDW 12.8 Plt Count 136 L MPV 10.4 Immature Gran % (Auto) 0.5 Neut % (Auto) 58.9 Lymph % (Auto) 17.1 L [place] % (Auto) 8.5 Eos % (Auto) 14.5 H Baso % (Auto) 0.5 Lymph # (Auto) 0.66 L [place] # (Auto) 0.3 Eos # (Auto) 0.6 H Baso # (Auto) 0.0 Abs Immat Gran (auto) 0.02 Absolute Neuts (auto) 2.3 Absolute Nucleated RBC 0.000 Nucleated RBC % 0.0 Sodium 138 Potassium 3.9 Chloride 111 H Carbon Dioxide 19 L Anion Gap 8 BUN 18 Creatinine 1.38 H Estim Creat Clear Calc 44 Estimated GFR 49 L Glucose 155 H POC Capillary Glucose 139 H Calcium 8.6 Total Bilirubin 0.3 AST 22 ALT 19 Alkaline Phosphatase 34 L Total Protein 6.1 L Albumin 3.2 L Quality VTE Prophylaxis VTE prophylaxis: pharmacologic ordered
--- NOTE | 2024-11-22 11:19 | P.DS_ITS ---
DS: Admitting Diagnosis Discharge Date 11/22 Admitting Diagnosis gen weakness, increased urinary frequency DS: Discharge Diagnosis Discharge Diagnosis (1) Acute UTI: Code(s): N39.0 - Urinary tract infection, site not specified Status: Acute (2) Bacteremia: Code(s): R78.81 - Bacteremia Status: Acute (3) OSMAN (acute kidney injury): Code(s): N17.9 - Acute kidney failure, unspecified Status: Acute (4) Generalized weakness: Code(s): R53.1 - Weakness Status: Acute (5) Type 2 diabetes mellitus with peripheral neuropathy: Code(s): E11.42 - Type 2 diabetes mellitus with diabetic polyneuropathy Status: Acute (6) Essential hypertension: Code(s): I10 - Essential (primary) hypertension Status: Acute (7) Hyperlipidemia: Qualifiers: Hyperlipidemia type: mixed hyperlipidemia Qualified Code(s): E78.2 - Mixed hyperlipidemia Code(s): E78.5 - Hyperlipidemia, unspecified Status: Acute (8) BPH (benign prostatic hyperplasia): Qualifiers: Lower urinary tract symptom detail: weak urinary stream Lower urinary tract symptom presence: symptoms present Qualified Code(s): N40.1 - Benign prostatic hyperplasia with lower urinary tract symptoms; R39.12 - Poor urinary stream Code(s): N40.0 - Benign prostatic hyperplasia without lower urinary tract symptoms Status: Acute DS: Summary Hospital Course Hospital Course: 79-year-old male with a past medical history of T2DM, HTN, hyperlipidemia, CKD stage 3b, GERD, and BPH who presents to the hospital with generalized weakness and increased urinary frequency for the past couple of weeks. N39.0 - Urinary tract infection, site not specified * UA: Positive nitrates, 2+ leukocyte esterase, and 21-50 WBC, urine bacteria 4+ * UC obtained on 11/18 * Blood cultures to rule out bacteremia * No previous micro * started on Rocephin - switched to Keflex on 11/21 * WBC on admission = 14.0 * Monitor daily labs, continue IV antibiotics, monitor cultures * 11/21, WBC 5.9 * Still has some increased urinary frequency, but denies any dysuria or hematuria downgraded to Keflex- has total of 6 more doses left- RX sent R78.81 - Bacteremia * lactic acid: 0.9 * suspected source: UTI * blood cultures drawn on 11/18 - Gram + cocci cluster * Contaminate considered, will continue to monitor current cultures * UA: Positive nitrates, 2+ leukocyte esterase, and 21-50 WBC, urine bacteria 4+ * Urine culture: - Ecoli, susceptibility pending * Continue IV antibiotics - will add on Vanc and monitor BCs for future growth * Repeat BC 11/21 -prelim negative N17.9 - Acute kidney failure, unspecified * In ED: Cr 1.22, BUN 20 * On 11/21, Cr 1.66 , GFR: 40 , BUN:21 * IV Fluids: NS 100ml/hr * Trend renal function * Trend electrolytes, correct as needed(4) Generalized weakness: R53.1 - Weakness * Likely secondary to underlying infection, UTI * Gentle IVF rehydration * PT/OT eval * Endorses feeling much better, independent ambulation with cane * improved E11.42 - Type 2 diabetes mellitus with diabetic polyneuropathy * Hypoglycemia protocol * POC blood glucose ACHS * Home medication - metformin - hold * Correct regimen ordered - low dose TIDWM and HS * A1C 6.9% (08/22/24) * I10 - Essential (primary) hypertension * Patient's blood pressure was reviewed on 11/19 * Blood pressure remains well controlled. * continue current medications -lisinopril(7) Hyperlipidemia: E78.5 - Hyperlipidemia * Continue rosuvastatin- no changes # BPH (benign prostatic hyperplasia): * Continue tamsulosin and finasteride * Urology consulted: -Urine culture showed ecoli. culture driven antibiotic therapy per primary service. Treat with 7 days of culture specific antibiotics. -Continue tamsulosin and finasteride. -Will arrange outpatient follow-up for further evaluation. Status at Discharge Functional status at discharge: independent ambulation Overall status at discharge: patient is progressing back to baseline Time Spent with Patient Time attestation: Total time spent providing and/or coordinating discharge services: Time spent: Greater than 30 minutes Exam Narrative: General: Awake, alert, comfortable, no acute distress HEENT: Normocephalic, atraumatic, sclerae anicteric Respiratory: Normal respiratory effort, no accessory muscle use Skin: Normal coloration, warm and dry Neurologic: No focal neuro deficits noted Psychiatric: Appropriate mood and affect, judgment and insight intact Const: General: comfortable DS: Data Data Completed and Pending Labs on day of discharge: Labs from last 24 hours 11/22/24 11/22/24 11/22/24 07:34 07:07 07:06 WBC 3.9 L RBC 3.24 L Hgb 10.6 L Hct 31.3 L MCV 96.6 MCH 32.7 MCHC 33.9 RDW 12.8 Plt Count 136 L MPV 10.4 Immature Gran % (Auto) 0.5 Neut % (Auto) 58.9 Lymph % (Auto) 17.1 L Frederick % (Auto) 8.5 Eos % (Auto) 14.5 H Baso % (Auto) 0.5 Lymph # (Auto) 0.66 L Frederick # (Auto) 0.3 Eos # (Auto) 0.6 H Baso # (Auto) 0.0 Abs Immat Gran (auto) 0.02 Absolute Neuts (auto) 2.3 Absolute Nucleated RBC 0.000 Nucleated RBC % 0.0 Sodium 138 Potassium 3.9 Chloride 111 H Carbon Dioxide 19 L Anion Gap 8 BUN 18 Creatinine 1.38 H Estim Creat Clear Calc 44 Estimated GFR 49 L Glucose 155 H POC Capillary Glucose 139 H Calcium 8.6 Total Bilirubin 0.3 AST 22 ALT 19 Alkaline Phosphatase 34 L Total Protein 6.1 L Albumin 3.2 L 11/21/24 11/21/24 11/21/24 20:01 16:30 11:23 WBC RBC Hgb Hct MCV MCH MCHC RDW Plt Count MPV Immature Gran % (Auto) Neut % (Auto) Lymph % (Auto) Frederick % (Auto) Eos % (Auto) Baso % (Auto) Lymph # (Auto) Frederick # (Auto) Eos # (Auto) Baso # (Auto) Abs Immat Gran (auto) Absolute Neuts (auto) Absolute Nucleated RBC Nucleated RBC % Sodium Potassium Chloride Carbon Dioxide Anion Gap BUN Creatinine Estim Creat Clear Calc Estimated GFR Glucose POC Capillary Glucose 257 H 264 H 282 H Calcium Total Bilirubin AST ALT Alkaline Phosphatase Total Protein Albumin Preliminary micro results at discharge 11/18/24 22:13 Blood Culture - Preliminary Blood Staphylococcus hominis 11/21/24 10:49 Blood Culture - Preliminary Blood 11/21/24 10:31 Blood Culture - Preliminary Blood 11/18/24 22:13 Blood Culture - Preliminary Blood Discharge Plan Discharge Attending physician on discharge: Luisa Stacy Consulting providers: Tarun Arce; Ethan Iverson Discharging Clinician: Rossy Atkinson Patient Disposition: Home Activity: may shower Diet: heart healthy Discharge Instructions: You were admitted for UTI (urinary track infection) and weakness. Youo were staretd on antibiotics and still have a total of 6 doses left. The remainer of the doses are sent to your pharmacy. Please take a next dose tonight. -Continue tamsulosin and finasteride. -Urology will arrange outpatient follow-up for further evaluation. Patient Instructions: Antibiotic Form Patient Language: Taiwanese Stand Alone Forms: General Discharge Information Follow-up/Referrals: Ethan Iverson MD [Physician] - 2 Weeks Gladis Zheng FNP-C [Primary Care Provider] - 2 Weeks Discharge Medications: New cephalexin 500 mg Capsule 500 mg PO Q12HR Qty: 6 0RF Continued mecobalamin (vitamin B12) 500 mcg tablet,chewable 500 mcg PO DAILY omeprazole 40 mg capsule,delayed release(DR/EC) See Rx Instructions .ROUTE .COMPLEX Qty: 90 1RF Dose Instruction: Take 1 capsule by mouth once daily Rx Instructions: Take 1 capsule by mouth once daily rosuvastatin 20 mg tablet See Rx Instructions .ROUTE .COMPLEX Qty: 90 1RF Dose Instruction: Take 1 tablet by mouth once daily Rx Instructions: Take 1 tablet by mouth once daily fluoxetine 20 mg capsule See Rx Instructions .ROUTE .COMPLEX Qty: 90 1RF Dose Instruction: Take 1 capsule by mouth once daily Rx Instructions: Take 1 capsule by mouth once daily lisinopril 20 mg tablet See Rx Instructions .ROUTE .COMPLEX Qty: 90 1RF Dose Instruction: Take 1 tablet by mouth once daily Rx Instructions: Take 1 tablet by mouth once daily metformin 500 mg tablet extended release 24 hr See Rx Instructions .ROUTE .COMPLEX Qty: 90 1RF Dose Instruction: Take 1 tablet by mouth once daily Rx Instructions: Take 1 tablet by mouth once daily tamsulosin 0.4 mg capsule See Rx Instructions .ROUTE .COMPLEX Qty: 90 1RF Dose Instruction: Take 1 capsule by mouth once daily Rx Instructions: Take 1 capsule by mouth once daily finasteride 5 mg tablet 5 mg PO DAILY Qty: 90 1RF insulin glargine [Lantus Solostar U-100 Insulin] 100 unit/mL (3 mL) insulin pen 16 unit subcut DAILY Qty: 15 0RF Date of admission: 11/19/24 09:15 Primary Care Provider: Gladis Zheng Admitting Provider: Katia Dooley Attending physician on admission: Katia Dooley Condition: Stable Quality VTE Prophylaxis VTE prophylaxis: pharmacologic ordered Hospitalist MIPS Heart Failure (Exclusion) Patient has history of Heart Transplant or Left Ventricular Assistive Device?: No IF YES, STOP HERE Heart Failure (Qualifier) Patient has current or prior documentation of LVEF less than or equal to 40%, or mod/servere depressed LVSF?: No IF NO, STOP HERE
[2024-11-22 11:55] LABS: Glucose Point of Care 236 mg/dl (65-105)
[2024-11-22] MEDS: INSULIN ASPART (*BKC) 100 UNITS/ML SUB-Q (12:18)
== END 2024-11-22 13:02 | disposition home or self-care (01) | DRG 690 ==
LOC: ANHED 11-19 02:54 → ANH3MEDSUR 11-19 03:19
PROVIDERS: Physician Assistant; Registered Nurse Emergency; Admitting Provider Internal Medicine; Emergency Provider Physician Assistant; PCP Clinical Nurse Specialist; Visit Provider Nurse Practitioner
DX: N39.0 Urinary tract infection, site not specified (principal); N17.9 Acute kidney failure, unspecified; B96.20 Unspecified Escherichia coli [E. coli] as the cause of diseases classified elsewhere; E11.42 Type 2 diabetes mellitus with diabetic polyneuropathy; E11.22 Type 2 diabetes mellitus with diabetic chronic kidney disease; E78.2 Mixed hyperlipidemia; E78.5 Hyperlipidemia, unspecified; I12.9 Hypertensive chronic kidney disease with stage 1 through stage 4 chronic kidney disease, or unspecified chronic kidney disease; K21.9 Gastro-esophageal reflux disease without esophagitis; N40.1 Benign prostatic hyperplasia with lower urinary tract symptoms; N18.32 Chronic kidney disease, stage 3b; R26.9 Unspecified abnormalities of gait and mobility; R35.0 Frequency of micturition; Z85.828 Personal history of other malignant neoplasm of skin; Z85.528 Personal history of other malignant neoplasm of kidney; Z85.038 Personal history of other malignant neoplasm of large intestine; Z90.49 Acquired absence of other specified parts of digestive tract; Z87.891 Personal history of nicotine dependence; Z66 Do not resuscitate; Z79.4 Long term (current) use of insulin; Z79.84 Long term (current) use of oral hypoglycemic drugs
CPT/HCPCS: 36415; 71046; 74177; 80053; 80202; 81001; 82948; 83605; 84484; 85025; 85055; 85610; 85730; 86140; 87040; 87086; 87181; 87186; 93005; 96365; 97110; 97161; 97165; 97530; 97535; 99285; A9270; G0378; J0696; J1650; J1815; J3370; J7030; Q9967

== ENCOUNTER 2024-12-03 10:53 | Outpatient (CLI) | payer MEDICARE, OTHER, SELFPAY ==
--- OUTSIDE RECORDS SUMMARY | 2024-12-03 11:06 | XMS_ITS | Clinical Summary ---
Author Organization [facility] Address [address] [place] [phone] Phone Care Team Providers Care [facility] Consultant Name Role Phone SharynbrigetteSebastian carnes DO Primary Care Provider [phone] Allergies No known active allergies Medications finasteride (PROSCAR) 5 MG tablet Take 5 mg by mouth 1 (one) time each day 10/31/2020 Active FLUoxetine (PROzac) 20 MG capsule Take 20 mg by mouth 1 (one) time each day 11/04/2020 Active omeprazole (PriLOSEC) [address] capsule Take 40 mg by mouth 1 (one) time each day 10/31/2020 Active rosuvastatin (CRESTOR) 20 MG tablet Take 20 mg by mouth 1 (one) time each day 11/17/2020 Active tamsulosin (FLOMAX) 0.4 MG 24 hr capsule Take 0.4 mg by mouth 1 (one) time each day 10/31/2020 Active Active Problems Problem Noted Date Diagnosed Date Tremor 01/19/2021 Simple renal cyst 01/19/2021 Osteoarthritis 01/19/2021 Malignant neoplasm of colon and/or rectum 2020 Hypertension 01/19/2021 Hyperlipidemia 01/19/2021 Gastroesophageal reflux disease 01/19/2021 Diabetes mellitus 01/19/2021 Depressive disorder 01/19/2021 Chronic kidney disease 01/19/2021 Benign prostatic hyperplasia 01/19/2021 Family History Medical History Relation Comments Diabetes mellitus Mother Hypertension Mother Relation Status Comments Mother Social History Tobacco Use Types Packs/Day Years Used Date Smoking Tobacco: Former Cigarettes Q uit: 05/30/1988 Smokeless Tobacco: Never Alcohol Use Standard Drinks/Week Comments Yes 1 (1 standard drink = 0.6 oz pur e alcohol) Sex and Gender Information Value Date Recorded Sex Assigned at Not on file Legal Sex Male 9:23 AM MDT Gender Identity Not on file Sexual Orientation Not on file Last Filed Vital Signs Vital Sign Reading Time Taken Comments Blood Pressure 126/78 01/19/2021 1:35 PM CDT Pulse - - Temperature 35.9 C (96.7 F) 01/19/2021 1:35 PM CDT Respiratory Rate 18 01/19/2021 1:35 PM CDT Oxygen Saturation - - Inhaled Oxygen Concentration - - Weight 90.7 kg (200 lb) 01/19/2021 1:35 PM CDT Height 177.8 cm (5' 10) 01/19/2021 1:35 PM CDT Body Mass Index 28.7 01/19/2021 1:35 PM CDT Plan of Treatment Health Maintenance Due Date Last Done Comments Pneumococcal PPSV23/PCV13 65 + Years / Low and Medium Risk (1 of 2 - PCV) 1993 Influenza Vaccine (#1) 2025 Insurance MEDICARE [employer] MEDICARE SUPPLEMENT Care Teams [facility] Consult[facility] Relationship Specialty Start Date End Date Sebastian Young DO [address] [place] [id number] PCP - General Internal Medicine 01/12/21
--- OUTSIDE RECORDS SUMMARY | 2024-12-03 11:06 | XMS_ITS | Clinical Summary ---
Author Organization [facility] Address [facility] [place] [address] Care Team Providers Care Graphic Specialist Name Role Phone Unavailable Primary Care Provider Unavailabl e Social History Tobacco Use Types Packs/Day Years Used Date Smoking Tobacco: Never Assessed Sex and Gender Information Value Date Recorded Sex Assigned at Not on file Legal Sex Male 9:12 PM [employer] Gender Identity Not on file Sexual Orientation Not on file Plan of Treatment Health Maintenance Due Date Last Done Comments DTaP, Tdap and Td Vaccines ( 1 - Tdap) 1962 Pneumococcal Vaccine: 50+ Ye ars (1 of 1 - PCV) 1993 Zoster Vaccines (1 of 2) 1993 RSV Immunization or 60+ Years (1 - 1-dose 75+ series) 2018 COVID-19 Vaccine ( - 2023-2 5 season) 2024 Meningococcal B Vaccine Aged Out No l onger eligible based on patient's age to complete this topic Meningococcal Vaccine Aged Out No mercedes gela eligible based on patient's age to complete this topic RSV Immunizations Under 20 Months Aged Out No longer eligible based on patient's age to complete this topic
--- OUTSIDE RECORDS SUMMARY | 2024-12-03 11:06 | XMS_ITS | Clinical Summary ---
Author Organization [facility] Address [address] [place] [address] Phone Care Team Providers Care Program Facilitator Name Role Phone Unavailable Primary Care Provider Unavailabl e Social History Tobacco Use Types Packs/Day Years Used Date Smoking Tobacco: Never Assessed Sex and Gender Information Value Date Recorded Sex Assigned at Not on file Legal Sex Male 10:30 PM CDT Gender Identity Not on file Sexual Orientation Not on file Plan of Treatment Not on file
[2024-12-03 13:24] LABS: Add Urine Microscopic? YES; Appearance Urine Clear (Clear); Glucose Urine UA Trace mg/dL (Negative); Leukocyte Esterase Ur Trace LEU/UL (Negative); Nitrate Urine Negative (Negative); Non Pathogenic Casts 0-2; Specific Grav Ur 1.018 (1.001-1.035)
== END 2024-12-03 10:54 | disposition home or self-care (01) ==
LOC: ANHGOSHLAB 10:55
PROVIDERS: PCP Clinical Nurse Specialist; Visit Provider Internal Medicine
DX: N17.9 Acute kidney failure, unspecified (principal); N39.0 Urinary tract infection, site not specified
CPT/HCPCS: 81001